=== PATIENT | male | born 1965 | race Caucasian/White ===

== ENCOUNTER 2016-08-04 19:15 | Observation (INO) | payer OTHER ==
[2016-08-04] MEDS ORDERED: Naloxone 0.4 mg/ml Inj (Adult) IVP ONE (20:08)
[2016-08-04] MEDS ORDERED: Naloxone 0.4 mg/ml Inj (Adult) ONE (20:17)
--- NOTE | 2016-08-04 21:43 | C.PDOC ---
History Of Present Illness The patient,a 51 y/o male, presents to the ED for evaluation of intoxication after heroin and alcohol use tonight. Patient denies any pain, recent falls/ injuries, as well as suicidal/homicidal ideation at this time. Chief Complaint (Nursing): Substance Abuse History Per: Patient History/Exam Limitations: intoxication Onset/Duration Of Symptoms: Hrs Current Symptoms Are (Timing): Still Present Modifying Factor(s): Alcohol, Other (+heroin) Associated Symptoms: denies: Suicidal Thoughts, Suicidal Plan Involuntary Hold By: None Recent travel outside of the [place]: No Additional History Per: Patient Past Medical History Reviewed: Historical Data, Nursing Documentation, Vital Signs Vital Signs: Last Vital Signs Temp 98.0 F 08/05/16 04:07 Pulse 94 H 08/05/16 04:07 Resp 16 08/05/16 04:07 BP 143/73 08/05/16 04:07 Pulse Ox 94 L 08/05/16 04:07 - Medical History PMH: Asthma, HTN, Hypercholesterolemia Denies: Chronic Kidney Disease Surgical History: No Surg Hx - [facility] Procedures ALCOHOL DETOXIFICATION (01/03/13) COLONOSCOPY (01/03/13) EXCISION OF DESCENDING COLON, ENDO, DIAGN (02/22/15) EXCISION OF STOMACH, ENDO, DIAGN (07/05/15) OTHER ENDOSCOPY OF SM INTEST (01/03/13) Family History: States: Unknown Family Hx - Social History Hx Tobacco Use: Yes (former smoker) Hx Alcohol Use: Yes Hx Substance Use: Yes - Immunization History Hx Tetanus Toxoid Vaccination: No Hx Influenza Vaccination: No Hx Pneumococcal Vaccination: No Review Of Systems Except As Marked, All Systems Reviewed And Found Negative. Psych: Positive for: Other (alcohol and heroin abuse ). Negative for: Suicidal ideation Physical Exam - Physical Exam Appears: No Acute Distress, Other (visibly intoxicated ) Skin: Normal Color, Warm, Dry Head: Atraumatic, Normacephalic Eye(s): bilateral: Normal Inspection Oral Mucosa: Moist, Other (alcohol on breath ) Chest: Symmetrical, No Deformity, No Tenderness Cardiovascular: Rhythm Regular Respiratory: Normal Breath Sounds Back: Normal Inspection, No Vertebral Tenderness, No Paraspinal Tenderness Extremity: Normal ROM, Capillary Refill (less than 2 seconds) Neurological/Psych: Other (arousable to tactile and verbal stimulation) Gait: Unsteady ED Course And Treatment O2 Sat by Pulse Oximetry: 91 Progress Note: Patient received Narcan IV. ED OBSERVATION Discharge: Yes Date of observation admission: 08/04/16 Time of observation admission: 23:00 - Observation admission statement Patient is being placed in observation because:: Intoxication. - Goals of Observation Goals of observation are:: Sobreity. Disposition - Disposition Disposition: HOME/ ROUTINE Disposition Time: 06:00 Condition: IMPROVED - Clinical Impression Clinical Impression: Drug dependence, Alcohol abuse - Scribe Statement The provider has reviewed the documentation as recorded by the Scribe (Elly Guerra) Provider Attestation: All medical record entries made by the Scribe were at my direction and personally dictated by me. I have reviewed the chart and agree that the record accurately reflects my personal performance of the history, physical exam, medical decision making, and the department course for this patient. I have also personally directed, reviewed, and agree with the discharge instructions and disposition.
[2016-08-04 23:41] VITALS: RESP 16
[2016-08-05 04:08] VITALS: BP 143/73; PULSE 94; TEMP 98
[2016-08-05 05:44] VITALS: O2SAT 91
== END 2016-08-05 05:44 | disposition home or self-care (01) ==
LOC: C.ER 19:15 → C.9OBSV 20:00
PROVIDERS: ADMIT Emergency Medicine; ATTEND Emergency Medicine
DX: F10.229 Alcohol dependence with intoxication, unspecified (principal); F11.20 Opioid dependence, uncomplicated; J45.909 Unspecified asthma, uncomplicated; E78.00 Pure hypercholesterolemia, unspecified; I10 Essential (primary) hypertension
CPT/HCPCS: 82948; 96374; 99285; G0378; J2310

== ENCOUNTER 2016-12-22 17:52 | Observation (INO) | payer OTHER ==
[2016-12-22 18:02] VITALS: RESP 16; TEMP 97.9
[2016-12-22 18:05] VITALS: BMI 33.4
--- NOTE | 2016-12-22 18:14 | C.PDOC ---
History Of Present Illness 51 y/o M who presents to the ED for alcohol intoxication. Patient states he drank "a lot" today and needs a place to rest. Denies injury or pain. Denies head strike. Time Seen by Provider: 12/22/16 18:09 Chief Complaint (Nursing): Substance Abuse History Per: Patient History/Exam Limitations: no limitations Onset/Duration Of Symptoms: Days (x1) Current Symptoms Are (Timing): Still Present Modifying Factor(s): Alcohol Past Medical History Reviewed: Historical Data, Nursing Documentation, Vital Signs Vital Signs: Last Vital Signs Temp 97.9 F 12/22/16 18:02 Pulse 102 H 12/22/16 21:40 Resp 16 12/22/16 21:40 BP 118/66 12/22/16 21:40 Pulse Ox 96 12/22/16 21:40 - Medical History PMH: Asthma, HTN, Hypercholesterolemia Denies: Chronic Kidney Disease - [facility] Procedures ALCOHOL DETOXIFICATION (01/03/13) COLONOSCOPY (01/03/13) EXCISION OF DESCENDING COLON, ENDO, DIAGN (02/22/15) EXCISION OF STOMACH, ENDO, DIAGN (07/05/15) OTHER ENDOSCOPY OF SM INTEST (01/03/13) Family History: States: Unknown Family Hx - Social History Hx Tobacco Use: Yes (former smoker) Hx Alcohol Use: Yes (beer) Hx Substance Use: No - Immunization History Hx Tetanus Toxoid Vaccination: No Hx Influenza Vaccination: No Hx Pneumococcal Vaccination: No Review Of Systems Except As Marked, All Systems Reviewed And Found Negative. Constitutional: Negative for: Other (Injury, head trauma, pain) Psych: Positive for: Other (Alcohol intoxication) Physical Exam - Physical Exam Additional Physical Exam Comments: Constitutional: No acute distress. Alcohol on breath. Head: Normocephalic. Atraumatic. Eyes: PERRL. ENT: Moist mucous membranes. Neck: Supple. No midline tenderness. Cardiovascular: Regular rate. Radial pulse 2+ bilaterally. Chest: No tenderness. Respiratory: Clear to auscultation bilaterally. GI: Soft. Nontender. Nondistended. Back: No midline tenderness. Musculoskeletal: Full ROM x4. Superficial scratch on left lower leg, no tenderness. Minimal bleeding. Skin: No rash. Neurologic: Alert, no focal deficit. ED Course And Treatment O2 Sat by Pulse Oximetry: 95 Progress Note: Patient will be placed on ED-OBS for alcohol intoxication, pending sobriety. ED OBSERVATION Date of observation admission: 12/22/16 Time of observation admission: 18:11 - Observation admission statement Patient is being placed in observation because:: Alcohol intoxication - Goals of Observation Goals of observation are:: Clinical sobriety - Progress Note Progress Note: 12/22/16 Time: 18:11 --Patient is resting comfortably. Vital signs stable. 1900 Resting. Sign out to ED night team. Disposition - Disposition Disposition: HOME/ ROUTINE Disposition Time: 18:11 Condition: STABLE - Clinical Impression Clinical Impression: Alcohol withdrawal - Scribe Statement The provider has reviewed the documentation as recorded by the Jaspreet Mosher All medical record entries made by the Jaspreet were at my direction and personally dictated by me. I have reviewed the chart and agree that the record accurately reflects my personal performance of the history, physical exam, medical decision making, and the department course for this patient. I have also personally directed, reviewed, and agree with the discharge instructions and disposition.
[2016-12-22 21:42] VITALS: BP 118/66; PULSE 102
[2016-12-23 08:23] VITALS: O2SAT 95
== END 2016-12-23 03:06 | disposition home or self-care (01) ==
LOC: C.ER 17:52 → C.9OBSV 18:11
PROVIDERS: ADMIT Student in an Organized Health Care Education/Training Program; ATTEND Student in an Organized Health Care Education/Training Program
DX: F10.239 Alcohol dependence with withdrawal, unspecified (principal); F10.220 Alcohol dependence with intoxication, uncomplicated; I10 Essential (primary) hypertension; E78.00 Pure hypercholesterolemia, unspecified; J45.909 Unspecified asthma, uncomplicated; Z87.891 Personal history of nicotine dependence
CPT/HCPCS: 82948; 90471; 90715; G0378

== ENCOUNTER 2017-01-26 14:59 | Observation (INO) | payer OTHER ==
--- NOTE | 2017-01-26 15:09 | C.PDOC ---
History Of Present Illness Thomas Correa is a 51 year old male who was brought to the emergency department by EMS for alcohol intoxication. He admits to drinking alcohol prior to arrival. EMS report patient was found with an unsteady gait and alcohol breath. Patient denies any injury or head trauma. PMD: None provided. Time Seen by Provider: 01/26/17 15:01 History Per: Patient History/Exam Limitations: intoxication Onset/Duration Of Symptoms: Hrs (prior to arrival) Current Symptoms Are (Timing): Still Present Additional History Per: EMS Past Medical History Reviewed: Historical Data, Nursing Documentation, Vital Signs Vital Signs: Last Vital Signs Temp 98.1 F 01/26/17 19:04 Pulse 88 01/26/17 19:04 Resp 20 01/26/17 19:04 BP 148/68 01/26/17 19:04 Pulse Ox 98 01/26/17 19:04 - Medical History PMH: Asthma, HTN, Hypercholesterolemia Denies: Chronic Kidney Disease - [facility] Procedures ALCOHOL DETOXIFICATION (01/03/13) COLONOSCOPY (01/03/13) EXCISION OF DESCENDING COLON, ENDO, DIAGN (02/22/15) EXCISION OF STOMACH, ENDO, DIAGN (07/05/15) OTHER ENDOSCOPY OF SM INTEST (01/03/13) Family History: States: Unknown Family Hx - Social History Hx Tobacco Use: Yes (former smoker) Hx Alcohol Use: Yes (beer) Hx Substance Use: No - Immunization History Hx Tetanus Toxoid Vaccination: No Hx Influenza Vaccination: No Hx Pneumococcal Vaccination: No Review Of Systems Constitutional: Positive for: Other (Alcohol intoxication). Negative for: Fever , Chills Cardiovascular: Negative for: Chest Pain Respiratory: Negative for: Shortness of Breath Gastrointestinal: Negative for: Nausea, Vomiting, Abdominal Pain, Diarrhea Neurological: Negative for: Weakness, Numbness Physical Exam - Physical Exam Appears: No Acute Distress Skin: Warm, Dry Head: Atraumatic Eye(s): bilateral: PERRL Oral Mucosa: Moist Tongue: No Swelling Lips: No Swelling Neck: Supple Chest: No Tenderness Cardiovascular: Rhythm Regular Respiratory: No Decreased Breath Sounds, No Accessory Muscle Use Gastrointestinal/Abdominal: No Tenderness, No Distention Extremity: No Deformity Neurological/Psych: Oriented x3, Other (intoxicated, moves all extremities, no focal deficits) ED OBSERVATION Date of observation admission: 01/26/17 Time of observation admission: 15:24 - Observation admission statement Patient is being placed in observation because:: Need for resolution of acute symptoms - Goals of Observation Goals of observation are:: Clinical sobriety - Progress Note Progress Note: 01/26/17 15:25 Patient is resting comfortably, no acute changes. Vitals are stable 01/26/17 17:03 Patient is resting comfortably, no acute changes. Vitals are stable 01/26/17 18:35 Patient is resting comfortably, no acute changes. Vitals are stable Disposition - Disposition Disposition: HOME/ ROUTINE Disposition Time: 19:00 Condition: STABLE - Clinical Impression Clinical Impression: Alcohol intoxication - Scribe Statement The provider has reviewed the documentation as recorded by the Jaspreet rCowder Provider Attestation: All medical record entries made by the Jaspreet were at my direction and personally dictated by me. I have reviewed the chart and agree that the record accurately reflects my personal performance of the history, physical exam, medical decision making, and the department course for this patient. I have also personally directed, reviewed, and agree with the discharge instructions and disposition. Physician Patient Turnover Patient Signed Over To: Geronimo Medina Handoff Comments: pending sobriety
[2017-01-26 15:15] VITALS: RESP 20
[2017-01-26 19:04] VITALS: BP 148/68; PULSE 88; TEMP 98.1; O2SAT 98
== END 2017-01-26 19:03 | disposition home or self-care (01) ==
LOC: C.ER 14:59 → C.9OBSV 15:30
PROVIDERS: ADMIT Emergency Medicine; ATTEND Emergency Medicine
DX: F10.129 Alcohol abuse with intoxication, unspecified (principal); Y90.9 Presence of alcohol in blood, level not specified; I10 Essential (primary) hypertension; J45.909 Unspecified asthma, uncomplicated; Z87.891 Personal history of nicotine dependence
CPT/HCPCS: 82948; 99283; G0378

== ENCOUNTER 2017-02-04 12:56 | Emergency (ER) | payer OTHER ==
[2017-02-04 13:46] VITALS: RESP 20
[2017-02-04 15:49] VITALS: BP 128/73; PULSE 86; TEMP 98.3; O2SAT 95
--- NOTE | 2017-02-04 19:15 | C.PDOC ---
History Of Present Illness Pt was BIBEMS due to public alcohol intoxication. Pt admits to drinking "a lot of beer" today. Time Seen by Provider: 02/04/17 13:53 Chief Complaint (Nursing): Substance Abuse History Per: Patient, EMS History/Exam Limitations: intoxication Current Symptoms Are (Timing): Still Present Suicide/Self Injury Attempted (Context): None Modifying Factor(s): Alcohol Severity: Severe Associated Symptoms: denies: Suicidal Thoughts, Suicidal Plan Additional History Per: Prior Records Past Medical History Reviewed: Historical Data, Nursing Documentation, Vital Signs Vital Signs: Last Vital Signs Temp 98.3 F 02/04/17 15:48 Pulse 86 02/04/17 15:48 Resp 20 02/04/17 15:48 BP 128/73 02/04/17 15:48 Pulse Ox 95 02/04/17 15:48 - Medical History PMH: Asthma, HTN, Hypercholesterolemia Other PMH: Alcohol abuse - [facility] Procedures ALCOHOL DETOXIFICATION (01/03/13) COLONOSCOPY (01/03/13) EXCISION OF DESCENDING COLON, ENDO, DIAGN (02/22/15) EXCISION OF STOMACH, ENDO, DIAGN (07/05/15) OTHER ENDOSCOPY OF SM INTEST (01/03/13) Family History: States: Unknown Family Hx - Social History Hx Tobacco Use: Yes (former smoker) Hx Alcohol Use: Yes (beer) Hx Substance Use: No - Immunization History Hx Tetanus Toxoid Vaccination: No Hx Influenza Vaccination: No Hx Pneumococcal Vaccination: No Review Of Systems Review Of Systems: ROS cannot be obtained secondary to pt's inabilty to answer questions. Physical Exam - Physical Exam Appears: Other (AOB, intoxicated) Skin: Normal Color, Warm, Dry, No Rash Head: Atraumatic, Normacephalic Eye(s): bilateral: PERRL, EOMI Neck: Normal ROM, No Midline Cervical Tenderness, No Step Off Deformity, Supple Cardiovascular: Rhythm Regular Respiratory: Normal Breath Sounds, No Accessory Muscle Use Gastrointestinal/Abdominal: Soft, No Tenderness Extremity: Normal ROM, No Deformity Neurological/Psych: Eyes Open With Command, Slow To Respond With Command Gait: Unable To Assess ED Course And Treatment O2 Sat by Pulse Oximetry: 95 Pulse Ox Interpretation: Normal Progress Note: I was informed by the staff that the patient had walked out during observation. Reevaluation Time: 19:17 Reassessment Condition: Improved Disposition - Disposition Disposition: ELOPEMENT - ER ONLY Disposition Time: 19:19 Condition: UNKNOWN - Clinical Impression Clinical Impression: Alcohol abuse, Patient left before treatment completed
== END 2017-02-04 15:48 | disposition left against medical advice (07) ==
LOC: C.ER 12:56
DX: F10.10 Alcohol abuse, uncomplicated (principal); Y90.9 Presence of alcohol in blood, level not specified

== ENCOUNTER → 2017-03-23 | Emergency (ER) | payer OTHER ==
[~2017-03-23] MED LIST: DiphenhydrAMINE 50 mg/ml Inj ONE; Multivitamin (MVI) 10 ML, Thiamine 100 MG, Folic Acid 1 MG in Sodium Chloride 0.9% 1,00... IV STA; Sodium Chloride 0.9% 1,000 ML ONE
[2017-03-23 14:32] VITALS: BP 147/58; PULSE 113; RESP 20; TEMP 98.7; O2SAT 95
[2017-03-23 14:43] VITALS: BMI 35.5
[2017-03-23 15:10] LABS: BASO # 0.1 K/uL (0.0-0.2); EOS # 0.3 K/uL (0.0-0.7); EOS % 4.6 % (0.0-4.0); HEMATOCRIT 30.1 % (35.0-51.0); LYMPH # 2.2 K/uL (1.0-4.3); LYMPH % 33.3 % (20.0-40.0); MEAN CELL VOLUME 91.7 fL (80.0-94.0); MEAN CORPUSCULAR HEMOGLOBIN 29.3 pg (27.0-31.0); MEAN PLATELET VOLUME 6.8 fL (7.2-11.7); MONO # 0.7 K/uL (0.0-0.8); MONO % 10.2 % (0.0-10.0); RED CELL DISTRIBUTION WIDTH 21.6 % (11.5-14.5); WHITE BLOOD COUNT 6.5 K/uL (4.8-10.8)
[2017-03-23 15:25] LABS: BILIRUBIN,TOTAL 2.3 mg/dL (0.2-1.3); CALCIUM 7.3 mg/dl (8.6-10.4); GFR AFRICAN-AMERICAN > 60; GLUCOSE,RANDOM 115 mg/dL (75-110)
[2017-03-23 15:26] LABS: ALB/GLOB RATIO 0.8 (1.0-2.1); ALKALINE PHOSPHATASE 168 U/L (38-126); ALT/SGPT 36 U/L (21-72); AST/SGOT 86 U/L (17-59); BLOOD UREA NITROGEN 12 mg/dL (9-20); CARBON DIOXIDE 27 mmol/L (22-30); CHLORIDE 104 mmol/L (98-107); MAGNESIUM 1.5 mg/dL (1.6-2.3); POTASSIUM 3.9 mmol/L (3.6-5.2); SODIUM 139 mmol/L (132-148)
[2017-03-23 16:27] LABS: ALCOHOL SERUM 398 mg/dl (0-10)
--- NOTE | 2017-03-23 16:33 | C.PDOC ---
History Of Present Illness Pt was BIBEMS due to public alcohol intoxication. Time Seen by Provider: 03/23/17 14:32 Chief Complaint (Nursing): Substance Abuse History Per: Patient, EMS History/Exam Limitations: intoxication Onset/Duration Of Symptoms: Unknown Current Symptoms Are (Timing): Still Present Suicide/Self Injury Attempted (Context): None Modifying Factor(s): Alcohol Severity: Moderate Associated Symptoms: denies: Suicidal Thoughts, Suicidal Plan Additional History Per: Prior Records Past Medical History Reviewed: Historical Data, Nursing Documentation, Vital Signs Vital Signs: Last Vital Signs Temp 98.7 F 03/23/17 14:31 Pulse 113 H 03/23/17 14:31 Resp 20 03/23/17 14:31 BP 147/58 L 03/23/17 14:31 Pulse Ox 95 03/23/17 14:31 - Medical History PMH: Asthma, HTN, Hypercholesterolemia Other PMH: Alcohol abuse - [facility] Procedures ALCOHOL DETOXIFICATION (01/03/13) COLONOSCOPY (01/03/13) EXCISION OF DESCENDING COLON, ENDO, DIAGN (02/22/15) EXCISION OF STOMACH, ENDO, DIAGN (07/05/15) OTHER ENDOSCOPY OF SM INTEST (01/03/13) Family History: States: Unknown Family Hx - Social History Hx Tobacco Use: Yes (former smoker) Hx Alcohol Use: Yes (beer) Hx Substance Use: No - Immunization History Hx Tetanus Toxoid Vaccination: No Hx Influenza Vaccination: No Hx Pneumococcal Vaccination: No Review Of Systems Review Of Systems: ROS cannot be obtained secondary to pt's inabilty to answer questions. Physical Exam - Physical Exam Appears: Other (AOB, intoxicated) Skin: Normal Color, Warm, Dry Head: Abrasion (on nose) Eye(s): bilateral: PERRL Neck: Normal ROM, No Midline Cervical Tenderness, No Step Off Deformity, Supple Chest: Symmetrical, No Deformity Cardiovascular: Rhythm Regular Respiratory: Normal Breath Sounds, No Accessory Muscle Use Gastrointestinal/Abdominal: Soft, No Tenderness Extremity: Normal ROM, No Deformity Neurological/Psych: Slow To Respond With Command, Other (Moving all extremities) Gait: Unable To Assess ED Course And Treatment - Laboratory Results Result Diagrams: 03/23/17 15:05 03/23/17 15:05 O2 Sat by Pulse Oximetry: 95 Pulse Ox Interpretation: Normal Progress Note: I was informed by the staff that the pt had walked out during evaluation. Reevaluation Time: 16:30 Disposition - Disposition Disposition: ELOPEMENT - ER ONLY Disposition Time: 16:40 Condition: UNKNOWN - Clinical Impression Clinical Impression: Alcohol intoxication, Left before treatment completed
== END | disposition left against medical advice (07) ==
LOC: C.ER 14:23
DX: F10.129 Alcohol abuse with intoxication, unspecified (principal); Y90.8 Blood alcohol level of 240 mg/100 ml or more

== ENCOUNTER 2017-05-25 18:41 | Emergency (ER) | payer OTHER ==
[2017-05-25 18:42] VITALS: BMI 35.5
[2017-05-25 18:49] VITALS: O2SAT 98
--- NOTE | 2017-05-25 19:22 | C.PDOC ---
History Of Present Illness 51 year old male presents to the ER via EMS for public intoxication. Patient has had many prior evaluation with the same presentation. Currently ambulating freely in the ER. Denies complaints at this time. Time Seen by Provider: 05/25/17 19:08 Chief Complaint (Nursing): Substance Abuse History Per: Patient History/Exam Limitations: no limitations Onset/Duration Of Symptoms: Hrs Current Symptoms Are (Timing): Still Present Suicide/Self Injury Attempted (Context): None Modifying Factor(s): Alcohol Associated Symptoms: denies: Depression, Suicidal Thoughts, Suicidal Plan Involuntary Hold By: None Recent travel outside of the [place]: No Past Medical History Reviewed: Historical Data, Nursing Documentation, Vital Signs Vital Signs: Last Vital Signs Temp 97.2 F L 05/25/17 19:27 Pulse 84 05/25/17 19:27 Resp 14 05/25/17 19:27 BP 150/80 05/25/17 19:27 Pulse Ox 98 05/25/17 19:27 - Medical History PMH: Asthma, HTN, Hypercholesterolemia - [facility] Procedures ALCOHOL DETOXIFICATION (01/03/13) COLONOSCOPY (01/03/13) EXCISION OF DESCENDING COLON, ENDO, DIAGN (02/22/15) EXCISION OF STOMACH, ENDO, DIAGN (07/05/15) OTHER ENDOSCOPY OF SM INTEST (01/03/13) Family History: States: Unknown Family Hx - Social History Hx Tobacco Use: Yes (former smoker) Hx Alcohol Use: Yes (beer) Hx Substance Use: No - Immunization History Hx Tetanus Toxoid Vaccination: No Hx Influenza Vaccination: No Hx Pneumococcal Vaccination: No Review Of Systems Constitutional: Negative for: Fever, Chills Gastrointestinal: Negative for: Nausea, Vomiting, Abdominal Pain, Diarrhea Physical Exam - Physical Exam Appears: Non-toxic, No Acute Distress, Other (ETOH on breath, no sign of injury) Skin: Normal Color, Warm, Dry Head: Atraumatic, Normacephalic Eye(s): bilateral: Normal Inspection Oral Mucosa: Moist Neck: Normal, Supple Chest: Symmetrical, No Tenderness Cardiovascular: Rhythm Regular Respiratory: Normal Breath Sounds, No Rales, No Rhonchi, No Wheezing Gastrointestinal/Abdominal: Soft, No Tenderness Neurological/Psych: Oriented x3, Normal Speech, Other (No focal deficits) Gait: Steady (Ambulating freely in the ER) ED Course And Treatment O2 Sat by Pulse Oximetry: 98 (Room air) Pulse Ox Interpretation: Normal Medical Decision Making Medical Decision Making: typical alcohol intox no injuries baseline per prior evals stable gait in ED will go to [place] [facility]. Disposition Doctor Will See Patient In The: Office Counseled Patient/Family Regarding: Studies Performed, Diagnosis - Disposition Referrals: Alcoholics Anonymous [Outside] [facility] [Outside] [facility] [Outside] [facility] [Outside] Disposition: HOME/ ROUTINE Disposition Time: 19:22 Condition: GOOD Instructions: Abuse of Alcohol (ED) Forms: [employer] (Tajik) Print Language: WELSH - Clinical Impression Clinical Impression: Alcohol abuse - Scribe Statement The provider has reviewed the documentation as recorded by the Scribjessica Naqvi All medical record entries made by the Scribe were at my direction and personally dictated by me. I have reviewed the chart and agree that the record accurately reflects my personal performance of the history, physical exam, medical decision making, and the department course for this patient. I have also personally directed, reviewed, and agree with the discharge instructions and disposition.
[2017-05-25 19:29] VITALS: BP 150/80; PULSE 84; RESP 14; TEMP 97.2
== END 2017-05-25 19:45 | disposition home or self-care (01) ==
LOC: C.ER 18:41
DX: F10.10 Alcohol abuse, uncomplicated (principal); E78.00 Pure hypercholesterolemia, unspecified; I10 Essential (primary) hypertension; Z87.891 Personal history of nicotine dependence

== ENCOUNTER 2017-06-14 22:10 | Emergency (ER) | payer OTHER ==
[2017-06-14 22:13] VITALS: BMI 35.5
--- NOTE | 2017-06-15 00:32 | C.PDOC ---
History Of Present Illness 51 year old male is brought into the ED for alcohol intoxication after he was found wandering in [facility] [address] [facility]. Patient admits to drinking alcohol today. Patient denies any SI/HI, hallucinations, physical complaints. Chief Complaint (Nursing): Substance Abuse History Per: Patient, EMS History/Exam Limitations: intoxication Onset/Duration Of Symptoms: Hrs Current Symptoms Are (Timing): Still Present Suicide/Self Injury Attempted (Context): None Modifying Factor(s): Alcohol Associated Symptoms: denies: Depression, Suicidal Thoughts, Suicidal Plan Recent travel outside of the [place]: No Additional History Per: Patient Past Medical History Reviewed: Historical Data, Nursing Documentation, Vital Signs Vital Signs: Last Vital Signs Temp 97 F L 06/15/17 04:00 Pulse 70 06/15/17 04:00 Resp 14 06/15/17 04:00 BP 118/70 06/15/17 04:00 Pulse Ox 95 06/15/17 05:28 - Medical History PMH: Asthma, HTN, Hypercholesterolemia Denies: Chronic Kidney Disease Surgical History: No Surg Hx - [facility] Procedures ALCOHOL DETOXIFICATION (01/03/13) COLONOSCOPY (01/03/13) EXCISION OF DESCENDING COLON, ENDO, DIAGN (02/22/15) EXCISION OF STOMACH, ENDO, DIAGN (07/05/15) OTHER ENDOSCOPY OF SM INTEST (01/03/13) Family History: States: Unknown Family Hx - Social History Hx Tobacco Use: Yes (former smoker) Hx Alcohol Use: Yes (beer) Hx Substance Use: No - Immunization History Hx Tetanus Toxoid Vaccination: No Hx Influenza Vaccination: No Hx Pneumococcal Vaccination: No Review Of Systems Constitutional: Negative for: Fever, Chills Cardiovascular: Negative for: Chest Pain, Palpitations Respiratory: Negative for: Cough, Shortness of Breath Gastrointestinal: Negative for: Nausea, Vomiting, Abdominal Pain Skin: Negative for: Rash Neurological: Negative for: Weakness, Numbness Psych: Negative for: Depression, Suicidal ideation Physical Exam - Physical Exam Appears: Non-toxic, Unkempt Skin: Normal Color, Warm, Dry Head: Atraumatic, Normacephalic Eye(s): bilateral: Normal Inspection Nose: No Discharge, No Deformity Oral Mucosa: Moist Neck: Normal ROM, Supple Chest: Symmetrical Cardiovascular: Rhythm Regular, No Murmur Respiratory: Normal Breath Sounds, No Rales, No Rhonchi, No Wheezing Gastrointestinal/Abdominal: Soft, No Tenderness, No Guarding, No Rebound Extremity: Normal ROM, No Tenderness, No Deformity, No Swelling Neurological/Psych: Oriented x3, Other (Slurred speech, somnolent) ED Course And Treatment O2 Sat by Pulse Oximetry: 95 (On RA) Pulse Ox Interpretation: Normal Medical Decision Making Medical Decision Making: Impression: AOB Plan: * Period neurological checks * Check when medically sober Disposition - Disposition Referrals: Alcoholics Anonymous [Outside] Disposition: HOME/ ROUTINE Disposition Time: 05:27 Condition: FAIR Instructions: Alcohol Use - When Is Drinking a Problem?, Alcohol Poisoning Forms: [email or web address] (Urdu) Print Language: HEBREW - Clinical Impression Clinical Impression: Alcohol intoxication - Scribe Statement The provider has reviewed the documentation as recorded by the Scribe Tono Avila All medical record entries made by the Scribe were at my direction and personally dictated by me. I have reviewed the chart and agree that the record accurately reflects my personal performance of the history, physical exam, medical decision making, and the department course for this patient. I have also personally directed, reviewed, and agree with the discharge instructions and disposition.
[2017-06-15 05:29] VITALS: O2SAT 95
[2017-06-15 05:37] VITALS: BP 118/70; PULSE 70; RESP 14; TEMP 97
== END 2017-06-15 05:37 | disposition home or self-care (01) ==
LOC: C.ER 22:10
DX: F10.129 Alcohol abuse with intoxication, unspecified (principal); Y90.9 Presence of alcohol in blood, level not specified

== ENCOUNTER 2017-07-06 14:51 | Emergency (ER) | payer OTHER ==
[2017-07-06 14:52] VITALS: BMI 35.5
[2017-07-06 15:04] VITALS: TEMP 97.6
--- NOTE | 2017-07-06 15:17 | C.PDOC ---
History Of Present Illness Patient is a 51 y/o male who presents to the ED by BLS for public intoxication. Patient has extensive history for similar presentations. Denies any SI, HI, fever, or chills. No other physical complaints at this time. Time Seen by Provider: 07/06/17 15:05 Chief Complaint (Nursing): Substance Abuse History Per: Patient History/Exam Limitations: no limitations Onset/Duration Of Symptoms: Hrs Current Symptoms Are (Timing): Still Present Suicide/Self Injury Attempted (Context): None Modifying Factor(s): Alcohol Associated Symptoms: denies: Suicidal Thoughts, Suicidal Plan Recent travel outside of the [place]: No Past Medical History Reviewed: Historical Data, Nursing Documentation, Vital Signs Vital Signs: Last Vital Signs Temp 97.6 F 07/06/17 14:59 Pulse 88 07/06/17 17:37 Resp 20 07/06/17 17:37 BP 144/77 07/06/17 17:37 Pulse Ox 98 07/06/17 19:11 - Medical History PMH: Asthma, HTN, Hypercholesterolemia Denies: Chronic Kidney Disease Surgical History: Endoscopy Other Surgeries: colonoscopy - [facility] Procedures ALCOHOL DETOXIFICATION (01/03/13) COLONOSCOPY (01/03/13) EXCISION OF DESCENDING COLON, ENDO, DIAGN (02/22/15) EXCISION OF STOMACH, ENDO, DIAGN (07/05/15) OTHER ENDOSCOPY OF SM INTEST (01/03/13) Family History: States: No Known Family Hx - Social History Hx Tobacco Use: Yes (former smoker) Hx Alcohol Use: Yes (beer) Hx Substance Use: No - Immunization History Hx Tetanus Toxoid Vaccination: No Hx Influenza Vaccination: No Hx Pneumococcal Vaccination: No Review Of Systems Except As Marked, All Systems Reviewed And Found Negative. Neurological: Positive for: Other (actue EtOH intoxication) Physical Exam - Physical Exam Appears: Well, Non-toxic, No Acute Distress Skin: Normal Color, Warm, Dry Head: Atraumatic, Normacephalic Oral Mucosa: Moist Chest: Symmetrical Cardiovascular: Rhythm Regular, No Murmur Respiratory: Normal Breath Sounds, No Rales, No Rhonchi, No Wheezing Gastrointestinal/Abdominal: Soft, No Tenderness Neurological/Psych: Oriented x3, Normal Speech Gait: Unsteady ED Course And Treatment O2 Sat by Pulse Oximetry: 98 Medical Decision Making Medical Decision Making: Blood sugar ordered. pendign clinical sobriety 430 : pt sleeping in nad. Pt is no longer seen in ER, elopement. Disposition - Disposition Disposition: ELOPEMENT - ER ONLY Disposition Time: 07:15 Condition: UNKNOWN Forms: [facility] ([place] Citizen) - Clinical Impression Clinical Impression: Alcohol abuse - Scribe Statement The provider has reviewed the documentation as recorded by the Scribe Selina Aldana All medical record entries made by the Scribe were at my direction and personally dictated by me. I have reviewed the chart and agree that the record accurately reflects my personal performance of the history, physical exam, medical decision making, and the department course for this patient. I have also personally directed, reviewed, and agree with the discharge instructions and disposition.
[2017-07-06 17:37] VITALS: BP 144/77; PULSE 88; RESP 20
[2017-07-06 19:11] VITALS: O2SAT 98
== END 2017-07-06 19:12 | disposition left against medical advice (07) ==
LOC: C.ER 14:51
DX: F10.10 Alcohol abuse, uncomplicated (principal); E78.00 Pure hypercholesterolemia, unspecified; I10 Essential (primary) hypertension; Z87.891 Personal history of nicotine dependence

== ENCOUNTER 2017-07-12 22:56 | Emergency (ER) | payer OTHER ==
[2017-07-12 22:56] VITALS: BMI 35.5
--- NOTE | 2017-07-13 01:34 | C.PDOC ---
History Of Present Illness 52 year old male presents to the ER via EMS for public intoxication. Patient is seen regularly in the ER for ETOH intoxication, last visit was on 07/06/17. Denies physical complaints at this time. Time Seen by Provider: 07/12/17 23:17 Chief Complaint (Nursing): Substance Abuse History Per: Patient History/Exam Limitations: no limitations Onset/Duration Of Symptoms: Hrs Current Symptoms Are (Timing): Still Present Suicide/Self Injury Attempted (Context): None Modifying Factor(s): Alcohol Associated Symptoms: denies: Depression, Suicidal Thoughts Involuntary Hold By: None Recent travel outside of the [place]: No Past Medical History Reviewed: Historical Data, Nursing Documentation, Vital Signs Vital Signs: Last Vital Signs Temp 98.2 F 07/13/17 05:19 Pulse 95 H 07/13/17 05:19 Resp 22 07/13/17 05:19 BP 110/63 07/13/17 05:19 Pulse Ox 98 07/13/17 05:19 - Medical History PMH: Asthma, HTN, Hypercholesterolemia Surgical History: Endoscopy - [facility] Procedures ALCOHOL DETOXIFICATION (01/03/13) COLONOSCOPY (01/03/13) EXCISION OF DESCENDING COLON, ENDO, DIAGN (02/22/15) EXCISION OF STOMACH, ENDO, DIAGN (07/05/15) OTHER ENDOSCOPY OF SM INTEST (01/03/13) Family History: States: Unknown Family Hx - Social History Hx Tobacco Use: Yes (former smoker) Hx Alcohol Use: Yes (beer) Hx Substance Use: No - Immunization History Hx Tetanus Toxoid Vaccination: No Hx Influenza Vaccination: No Hx Pneumococcal Vaccination: No Review Of Systems Constitutional: Negative for: Fever, Chills Cardiovascular: Negative for: Chest Pain, Palpitations Respiratory: Negative for: Shortness of Breath Gastrointestinal: Negative for: Nausea, Vomiting Psych: Negative for: Depression, Suicidal ideation Physical Exam - Physical Exam Appears: Non-toxic, No Acute Distress, Other (ETOH on breath) Skin: Normal Color, Warm, Dry Head: Atraumatic, Normacephalic Eye(s): bilateral: Normal Inspection Oral Mucosa: Moist Chest: Symmetrical, No Tenderness Cardiovascular: Rhythm Regular Respiratory: Normal Breath Sounds, No Rales, No Rhonchi, No Wheezing Gastrointestinal/Abdominal: Soft, No Tenderness Neurological/Psych: Oriented x3, Normal Speech ED Course And Treatment O2 Sat by Pulse Oximetry: 96 Reevaluation Time: 05:50 Reassessment Condition: Improved Disposition Doctor Will See Patient In The: Office Counseled Patient/Family Regarding: Studies Performed, Diagnosis - Disposition Disposition: HOME/ ROUTINE Disposition Time: 05:50 Condition: GOOD Forms: [facility] (Albanian) - Clinical Impression Clinical Impression: Alcoholic, Alcohol abuse - Scribe Statement The provider has reviewed the documentation as recorded by the Scribjessica Naqvi All medical record entries made by the Jeremyibjessica were at my direction and personally dictated by me. I have reviewed the chart and agree that the record accurately reflects my personal performance of the history, physical exam, medical decision making, and the department course for this patient. I have also personally directed, reviewed, and agree with the discharge instructions and disposition.
[2017-07-13 06:28] VITALS: BP 123/77; PULSE 89; RESP 20; TEMP 98; O2SAT 97
== END 2017-07-13 06:28 | disposition home or self-care (01) ==
LOC: C.ER 22:56
DX: F10.20 Alcohol dependence, uncomplicated (principal); Y90.9 Presence of alcohol in blood, level not specified

== ENCOUNTER 2017-07-20 00:22 | Emergency (ER) | payer OTHER ==
[2017-07-20 00:22] VITALS: BMI 35.5
[2017-07-20 00:38] VITALS: RESP 18
--- NOTE | 2017-07-20 00:46 | C.PDOC ---
History Of Present Illness 52 y/o male well known to ER presents intoxicated. Denies acute complaints. No further Hx available due to heavy intoxication. Time Seen by Provider: 07/20/17 00:44 Chief Complaint (Nursing): Substance Abuse History Per: Patient History/Exam Limitations: intoxication Onset/Duration Of Symptoms: Hrs Current Symptoms Are (Timing): Still Present Suicide/Self Injury Attempted (Context): None Modifying Factor(s): Alcohol Associated Symptoms: denies: Suicidal Thoughts, Suicidal Plan Involuntary Hold By: None Recent travel outside of the [place]: No Past Medical History Reviewed: Historical Data, Nursing Documentation, Vital Signs Vital Signs: Last Vital Signs Temp 97.6 F 07/20/17 04:55 Pulse 99 H 07/20/17 04:55 Resp 18 07/20/17 04:55 BP 118/63 07/20/17 04:55 Pulse Ox 97 07/20/17 04:55 - Medical History PMH: Asthma, HTN, Hypercholesterolemia Surgical History: Endoscopy - [facility] Procedures ALCOHOL DETOXIFICATION (01/03/13) COLONOSCOPY (01/03/13) EXCISION OF DESCENDING COLON, ENDO, DIAGN (02/22/15) EXCISION OF STOMACH, ENDO, DIAGN (07/05/15) OTHER ENDOSCOPY OF SM INTEST (01/03/13) Family History: States: Unknown Family Hx - Social History Hx Tobacco Use: Yes (former smoker) Hx Alcohol Use: Yes (beer) Hx Substance Use: No - Immunization History Hx Tetanus Toxoid Vaccination: No Hx Influenza Vaccination: No Hx Pneumococcal Vaccination: No Review Of Systems Review Of Systems: ROS cannot be obtained secondary to pt's inabilty to answer questions. (Unable to obtiain due to Intoxication) Physical Exam - Physical Exam Appears: Non-toxic, No Acute Distress, Other (Somnulent but arousable to verbal stimuli ) Skin: Normal Color, Warm, Dry Head: Atraumatic, Normacephalic Eye(s): bilateral: Normal Inspection Ear(s): Bilateral: Normal Nose: Normal, No Discharge, No Deformity Oral Mucosa: Moist Neck: Supple Chest: Symmetrical, No Tenderness Cardiovascular: Rhythm Regular Respiratory: Normal Breath Sounds, No Decreased Breath Sounds, No Rales, No Rhonchi, No Wheezing Gastrointestinal/Abdominal: Soft, No Tenderness, No Distention, No Guarding, No Rebound Extremity: Normal ROM, No Pedal Edema, No Deformity Extremity: Bilateral: Normal Color And Temperature, Normal ROM Pulses: Left Dorsalis Pedis: Normal, Right Dorsalis Pedis: Normal Neurological/Psych: Oriented x3, Normal Speech ED Course And Treatment O2 Sat by Pulse Oximetry: 99 (RA) Pulse Ox Interpretation: Normal Medical Decision Making Medical Decision Making: Impression: - Alcohol intoxication Plan: - Frequent neuro checks - Patient will be discharged when completely sober Disposition - Disposition Referrals: Alcoholics Anonymous [Outside] Disposition: HOME/ ROUTINE Disposition Time: 07:10 Condition: FAIR Instructions: Alcohol Use - When Is Drinking a Problem? Forms: [employer] (Citizen Of [place]), [employer] (Bengali) Print Language: AFGHAN - Clinical Impression Clinical Impression: Alcohol intoxication - Scribe Statement The provider has reviewed the documentation as recorded by the Scribjessica Méndez All medical record entries made by the Scribjessica were at my direction and personally dictated by me. I have reviewed the chart and agree that the record accurately reflects my personal performance of the history, physical exam, medical decision making, and the department course for this patient. I have also personally directed, reviewed, and agree with the discharge instructions and disposition.
[2017-07-20 04:56] VITALS: BP 118/63; PULSE 99; TEMP 97.6
[2017-07-20 07:11] VITALS: O2SAT 99
== END 2017-07-20 05:32 | disposition home or self-care (01) ==
LOC: C.ER 00:22
DX: F10.129 Alcohol abuse with intoxication, unspecified (principal); Y90.9 Presence of alcohol in blood, level not specified

== ENCOUNTER 2017-07-20 22:03 | Emergency (ER) | payer OTHER ==
[2017-07-20 22:06] VITALS: BMI 35.5
[2017-07-20 22:28] VITALS: TEMP 97.6
--- NOTE | 2017-07-20 22:39 | C.PDOC ---
History Of Present Illness 52 y/o male brought to the Emergency Department via EMS for alcohol intoxication. Patient admits to drinking alcohol today. States he fell on the street and hit his head. Patient is able to ambulate with unsteady gait. No obvious signs of other injuries. Time Seen by Provider: 07/20/17 22:18 Chief Complaint (Nursing): Substance Abuse History Per: Patient History/Exam Limitations: intoxication Onset/Duration Of Symptoms: Days (x1) Modifying Factor(s): Alcohol Past Medical History Reviewed: Historical Data, Nursing Documentation, Vital Signs Vital Signs: Last Vital Signs Temp 97.6 F 07/20/17 22:21 Pulse 92 H 07/20/17 22:21 Resp 16 07/20/17 22:21 BP 131/78 07/20/17 22:21 Pulse Ox 95 07/20/17 23:33 - Medical History PMH: Asthma, HTN, Hypercholesterolemia Denies: Chronic Kidney Disease Surgical History: Endoscopy - [facility] Procedures ALCOHOL DETOXIFICATION (01/03/13) COLONOSCOPY (01/03/13) EXCISION OF DESCENDING COLON, ENDO, DIAGN (02/22/15) EXCISION OF STOMACH, ENDO, DIAGN (07/05/15) OTHER ENDOSCOPY OF SM INTEST (01/03/13) Family History: States: Unknown Family Hx - Social History Hx Tobacco Use: Yes (former smoker) Hx Alcohol Use: Yes (beer) Hx Substance Use: No - Immunization History Hx Tetanus Toxoid Vaccination: No Hx Influenza Vaccination: No Hx Pneumococcal Vaccination: No Review Of Systems Except As Marked, All Systems Reviewed And Found Negative. Eyes: Negative for: Vision Change Gastrointestinal: Negative for: Vomiting Musculoskeletal: Negative for: Arm Pain, Back Pain, Leg Pain Neurological: Positive for: Headache. Negative for: Weakness, Numbness Psych: Positive for: Other (alcohol intoxication) Physical Exam - Physical Exam Appears: Non-toxic, No Acute Distress Skin: Normal Color, Warm, Dry Head: Normacephalic, No Laceration, Other (boggy area over the right parietal occiput) Eye(s): bilateral: Normal Inspection, PERRL, EOMI Nose: Normal Oral Mucosa: Moist Neck: Normal ROM, No Midline Cervical Tenderness, Supple Chest: Symmetrical Cardiovascular: Rhythm Regular, No Murmur Respiratory: Normal Breath Sounds, No Accessory Muscle Use Gastrointestinal/Abdominal: Soft, No Tenderness, No Distention Extremity: Bilateral: Atraumatic, Normal Color And Temperature Neurological/Psych: Other (Slurred speech, (+) alcohol on breath) Gait: Unsteady ED Course And Treatment O2 Sat by Pulse Oximetry: 95 (RA) Pulse Ox Interpretation: Normal - CT Scan/US CT Head Other Rad Studies (CT/US): Read By Radiologist, Radiology Report Reviewed CT/US Interpretation: FINDINGS: Brain: Mild atrophy. No intracranial hemorrhage. No mass. Dilated perivascular spaces vs chronic. lacunar infarcts about basal ganglia. No edema. Ventricles: No hydrocephalus. Bones/joints: No acute fracture. Soft tissues: Right pinna calcifications. Vasculature: Minimal atherosclerotic disease of intracranial arteries. Sinuses: Scattered minimal to mild mucosal thickening. Mastoid air cells: No mastoid effusion. Orbits: Unremarkable as visualized. IMPRESSION: 1. No intracranial hemorrhage. 2. Incidental/non-acute findings are described above. Thank you for allowing us to participate in the care of your patient. Dictated and Authenticated by: Jonah Garcia MD. 07/20/2017 11:09 PM Eastern Time ([place] & [place]) Reevaluation Time: 00:11 Reassessment Condition: Unchanged (Patient continues to sleep quietly) Medical Decision Making Medical Decision Making: Initial Impression: 52 y/o intoxicated male with head injury Time: 22:34 Initial Plan: * Accucheck * CT Head W/O contrast Finger stick is 128. Disposition - Disposition Disposition Time: 00:13 Condition: STABLE Forms: [facility] (Bengali) - Clinical Impression Clinical Impression: Alcohol intoxication - Scribe Statement The provider has reviewed the documentation as recorded by the Jeremyibjessica Mosher Provider Attestation: All medical record entries made by the Jeremyibe were at my direction and personally dictated by me. I have reviewed the chart and agree that the record accurately reflects my personal performance of the history, physical exam, medical decision making, and the department course for this patient. I have also personally directed, reviewed, and agree with the discharge instructions and disposition. Physician Patient Turnover Patient Signed Over To: Sherrill Neal Handoff Comments: pending sobriety
--- NOTE | 2017-07-20 23:09 | CT ---
EXAM: CT Head Without Intravenous Contrast CLINICAL HISTORY: 52 years old, male; Injury or trauma; Fall; Initial encounter; Concussion / head injury; Additional info: ETOH head injury TECHNIQUE: Axial computed tomography images of the head/brain without intravenous contrast. All CT scans at this facility use one or more dose reduction techniques, viz.: automated exposure control; ma/kV adjustment per patient size (including targeted exams where dose is matched to indication; i.e. head); or iterative reconstruction technique. Coronal and sagittal reformatted images were created and reviewed. COMPARISON: No relevant prior studies available. FINDINGS: Brain: Mild atrophy. No intracranial hemorrhage. No mass. Dilated perivascular spaces vs chronic lacunar infarcts about basal ganglia. No edema. Ventricles: No hydrocephalus. Bones/joints: No acute fracture. Soft tissues: Right pinna calcifications. Vasculature: Minimal atherosclerotic disease of intracranial arteries. Sinuses: Scattered minimal to mild mucosal thickening. Mastoid air cells: No mastoid effusion. Orbits: Unremarkable as visualized. IMPRESSION: 1. No intracranial hemorrhage. 2. Incidental/non-acute findings are described above.
[2017-07-21 01:49] VITALS: RESP 19
[2017-07-21 04:20] VITALS: BP 121/67; PULSE 98; O2SAT 96
== END 2017-07-21 05:57 | disposition home or self-care (01) ==
LOC: C.ER 22:03
DX: F10.129 Alcohol abuse with intoxication, unspecified (principal); Y90.9 Presence of alcohol in blood, level not specified

== ENCOUNTER 2017-12-14 19:25 | Emergency (ER) | payer OTHER ==
[2017-12-14 19:26] VITALS: BMI 35.5
[2017-12-14 19:40] VITALS: TEMP 98.6
--- NOTE | 2017-12-14 19:55 | C.PDOC ---
History Of Present Illness 52 year old male patient brought to the ER by EMS due to public intoxication. Patient had many prior visits with the same complaint. Patient denies SI/HI. Time Seen by Provider: 12/14/17 19:28 Chief Complaint (Nursing): Substance Abuse History Per: Patient, EMS History/Exam Limitations: no limitations Onset/Duration Of Symptoms: Mins Current Symptoms Are (Timing): Still Present Modifying Factor(s): Alcohol Past Medical History Reviewed: Historical Data, Nursing Documentation, Vital Signs Vital Signs: Last Vital Signs Temp 98.6 F 12/14/17 19:36 Pulse 103 H 12/14/17 19:36 Resp 12 12/14/17 19:36 BP 164/90 H 12/14/17 19:36 Pulse Ox 95 12/14/17 20:50 - Medical History PMH: Asthma, HTN, Hypercholesterolemia Surgical History: Endoscopy - [facility] Procedures ALCOHOL DETOXIFICATION (01/03/13) COLONOSCOPY (01/03/13) EXCISION OF DESCENDING COLON, ENDO, DIAGN (02/22/15) EXCISION OF STOMACH, ENDO, DIAGN (07/05/15) OTHER ENDOSCOPY OF SM INTEST (01/03/13) Family History: States: Unknown Family Hx - Social History Hx Tobacco Use: Yes (former smoker) Hx Alcohol Use: Yes (beer) Hx Substance Use: No - Immunization History Hx Tetanus Toxoid Vaccination: No Hx Influenza Vaccination: No Hx Pneumococcal Vaccination: No Review Of Systems Except As Marked, All Systems Reviewed And Found Negative. Psych: Negative for: Suicidal ideation, Other (homicidal ideation) Physical Exam - Physical Exam Appears: Well, Non-toxic, No Acute Distress, Other (obese) Skin: Normal Color, Warm, Dry Head: Atraumatic, Normacephalic Eye(s): bilateral: Normal Inspection Nose: Normal Oral Mucosa: Moist Throat: Normal, Other (alcoholic breath) Neck: Normal ROM, Supple Chest: Symmetrical, No Deformity Cardiovascular: Rhythm Regular Respiratory: Normal Breath Sounds Back: No CVA Tenderness Extremity: Normal ROM (x4) Neurological/Psych: Oriented x3, Normal Speech Gait: Steady ED Course And Treatment O2 Sat by Pulse Oximetry: 95 (RA) Pulse Ox Interpretation: Normal Reevaluation Time: 23:12 Reassessment Condition: Improved (stable gait, wants d/c to street- needs to work in AM) Medical Decision Making Medical Decision Making: Impression: public intoxication Reassess: Patient is ambulatory, clinically sober. Patient was told about outpatient care including available detox programs and preparation of discharge records. Patient is stable for discharge and outpatient therapy f/u. Disposition Doctor Will See Patient In The: Office Counseled Patient/Family Regarding: Studies Performed, Diagnosis - Disposition Disposition: HOME/ ROUTINE Disposition Time: 23:12 Condition: GOOD Forms: [facility] (Spanish) - Clinical Impression Clinical Impression: Alcohol abuse - Scribe Statement The provider has reviewed the documentation as recorded by the Jaspreet Garcia Do Provider Attestation: All medical record entries made by the Jaspreet were at my direction and personally dictated by me. I have reviewed the chart and agree that the record accurately reflects my personal performance of the history, physical exam, medical decision making, and the department course for this patient. I have also personally directed, reviewed, and agree with the discharge instructions and disposition.
[2017-12-14 23:25] VITALS: BP 134/90; PULSE 89; RESP 20; O2SAT 97
== END 2017-12-14 23:24 | disposition home or self-care (01) ==
LOC: C.ER 19:25
DX: F10.10 Alcohol abuse, uncomplicated (principal); Y90.9 Presence of alcohol in blood, level not specified

== ENCOUNTER 2018-01-25 19:53 | Emergency (ER) | payer OTHER ==
[2018-01-25 19:53] VITALS: BMI 35.5
--- NOTE | 2018-01-25 20:29 | C.PDOC ---
History Of Present Illness 52 year old male presents to the emergency department with complaints of a healing ulcer on the back of his left leg for the last two weeks. Patient states that he occasionally drinks alcohol. He denies trauma, fever, chills, nausea, and vomiting. Time Seen by Provider: 01/25/18 20:29 Chief Complaint (Nursing): Abnormal Skin Integrity History Per: Patient History/Exam Limitations: no limitations Onset/Duration Of Symptoms: Other (two weeks) Current Symptoms Are (Timing): Still Present Location Of Injury: Left: Leg, Posterior: Leg Quality Of Symptoms: Swollen, Other (ulcer) Severity: Moderate Pain Scale Rating Of: 4 Recent travel outside of the [place]: No Additional History Per: Patient Past Medical History Reviewed: Historical Data, Nursing Documentation, Vital Signs Vital Signs: Last Vital Signs Temp 98 F 01/25/18 20:02 Pulse 94 H 01/25/18 20:02 Resp 16 01/25/18 20:02 BP 162/89 H 01/25/18 20:02 Pulse Ox 98 01/25/18 20:02 - Medical History PMH: Asthma, HTN, Hypercholesterolemia Denies: Chronic Kidney Disease Surgical History: Endoscopy - [facility] Procedures ALCOHOL DETOXIFICATION (01/03/13) COLONOSCOPY (01/03/13) EXCISION OF DESCENDING COLON, ENDO, DIAGN (02/22/15) EXCISION OF STOMACH, ENDO, DIAGN (07/05/15) OTHER ENDOSCOPY OF SM INTEST (01/03/13) Family History: States: No Known Family Hx - Social History Hx Tobacco Use: Yes (former smoker) Hx Alcohol Use: Yes (beer) Hx Substance Use: No - Immunization History Hx Tetanus Toxoid Vaccination: No Hx Influenza Vaccination: No Hx Pneumococcal Vaccination: No Review Of Systems Constitutional: Negative for: Fever, Chills Musculoskeletal: Positive for: Leg Pain Skin: Positive for: Lesions, Other (healing ulcer) Neurological: Negative for: Weakness Psych: Negative for: Anxiety Physical Exam - Physical Exam Appears: Non-toxic, No Acute Distress Skin: Warm, Dry, Other (poor vascular skin changes to the bilateral lower extremities. 1.5 cm x 2cm circular, healing ulcer with surrounding erythema to the posterior left calf. ) Oral Mucosa: Moist Neck: Supple Extremity: Normal ROM (all extremities), No Tenderness, Capillary Refill (< 2 seconds), No Swelling Extremity: Bilateral: Atraumatic Pulses: Left Dorsalis Pedis: Normal, Right Dorsalis Pedis: Normal Neurological/Psych: Oriented x3 Gait: Steady ED Course And Treatment - Laboratory Results Result Diagrams: 01/25/18 20:52 01/25/18 20:52 O2 Sat by Pulse Oximetry: 98 (RA) Pulse Ox Interpretation: Normal Progress Note: Plan: VBG. Beta Hydroxybutyrate. CMP. Drug Screen. CBC. PTT. Prothrombin Time. Blood Culture. Urinalysis Reevaluation Time: 22:46 Reassessment Condition: Improved Medical Decision Making Medical Decision Making: Upon provider reevaluation patient is feeling better, is medically stable, and requires no further treatment in the ED at this time. Patient will be discharged home with Rx for keflex and bactrim. Counseling was provided and all questions were answered regarding diagnosis and need for follow up with dr cortes. There is agreement to discharge plan. Return if symptoms persist or worsen. Disposition Counseled Patient/Family Regarding: Studies Performed, Diagnosis, Need For Followup, Rx Given - Disposition Referrals: Stephenie Cortes MD [Staff Provider] - Disposition: HOME/ ROUTINE Disposition Time: 20:29 Condition: FAIR Additional Instructions: Please return if symptoms recur Prescriptions: Cephalexin [Keflex] 500 mg PO TID #30 capsule Sulfamethoxazole/Trimethoprim [Bactrim DS 800 mg-160 mg] 1 tab PO BID #20 tab Instructions: Cellulitis (Skin Infection), Adult (DC) Forms: [employer] [employer] [facility] (Welsh) - Clinical Impression Clinical Impression: Cellulitis, Leg ulcer, left - Scribe Statement The provider has reviewed the documentation as recorded by the Jeremyibe (Mode Perry) Provider Attestation: All medical record entries made by the Scribe were at my direction and personally dictated by me. I have reviewed the chart and agree that the record accurately reflects my personal performance of the history, physical exam, medical decision making, and the department course for this patient. I have also personally directed, reviewed, and agree with the discharge instructions and disposition.
[2018-01-25 20:58] LABS: VENOUS BLOOD GAS BASE EXCESS 1.9 mmol/L (0.0-2.0); VENOUS BLOOD GAS PCO2 41 mmHg (40-60); VENOUS BLOOD GAS PO2 43 mm/Hg (30-55); VENOUS BLOOD PH 7.42 (7.32-7.43)
[2018-01-25 21:06] LABS: BASO % 1.2 % (0.0-2.0); EOS # 0.1 K/uL (0.0-0.7); EOS % 2.3 % (0.0-4.0); HEMOGLOBIN 9.3 g/dL (12.0-18.0); LYMPH # 1.1 K/uL (1.0-4.3); LYMPH % 28.5 % (20.0-40.0); MEAN CORPUSCULAR HEMOGLOBIN 32.5 pg (27.0-31.0); MEAN CORPUSCULAR HGB CONC 33.2 g/dL (33.0-37.0); MONO # 0.3 K/uL (0.0-0.8); NEUT # 2.3 K/uL (1.8-7.0); NRBC % 0.1 % (0.0-2.0); RBC 2.85 Mil/uL (4.40-5.90); RED CELL DISTRIBUTION WIDTH 21.7 % (11.5-14.5); WHITE BLOOD COUNT 3.9 K/uL (4.8-10.8)
[2018-01-25 21:08] LABS: ALB/GLOB RATIO 0.6 (1.0-2.1); ALBUMIN 2.6 g/dL (3.5-5.0); ALT/SGPT 34 U/L (21-72); AST/SGOT 66 U/L (17-59); BLOOD UREA NITROGEN 8 mg/dL (9-20); GFR NON-AFRICAN AMERICAN > 60
[2018-01-25 21:10] LABS: INR 1.8
[2018-01-25 21:40] VITALS: PULSE 89
[2018-01-25] MEDS ORDERED: CEFAZOLIN IVPB STA (22:32)
[2018-01-25] MEDS ORDERED: DEXTROSE 5% IVPB STA (22:32)
[2018-01-25] MEDS ORDERED: WATER IVPB STA (22:32)
[2018-01-25 23:16] VITALS: BP 138/78; RESP 18; TEMP 99.3; O2SAT 97
== END 2018-01-25 23:17 | disposition home or self-care (01) ==
LOC: C.ER 19:53
DX: L97.929 Non-pressure chronic ulcer of unspecified part of left lower leg with unspecified severity (principal); L03.116 Cellulitis of left lower limb; I10 Essential (primary) hypertension; E78.00 Pure hypercholesterolemia, unspecified; Z87.891 Personal history of nicotine dependence
CPT/HCPCS: 80053; 82009; 82803; 85025; 85610; 85730; 87040; 96365; 99283; J0690

== ENCOUNTER 2018-04-23 15:52 | Inpatient (IN) | payer OTHER ==
[2018-04-23 15:53] VITALS: BMI 35.5
[2018-04-23 16:39] LABS: BASO % 0.9 % (0.0-2.0); EOS # 0.1 K/uL (0.0-0.7); EOS % 2.6 % (0.0-4.0); LYMPH # 1.4 K/uL (1.0-4.3); LYMPH % 37.5 % (20.0-40.0); MEAN CELL VOLUME 71.9 fL (80.0-94.0); MEAN CORPUSCULAR HEMOGLOBIN 20.5 pg (27.0-31.0); MEAN CORPUSCULAR HGB CONC 28.5 g/dL (33.0-37.0); MEAN PLATELET VOLUME 8.2 fL (7.2-11.7); MONO # 0.3 K/uL (0.0-0.8); MONO % 9.1 % (0.0-10.0); NEUT # 1.8 K/uL (1.8-7.0); NEUT % 49.9 % (50.0-75.0); NRBC % 0.2 % (0.0-2.0); RBC 2.51 Mil/uL (4.40-5.90); RED CELL DISTRIBUTION WIDTH 21.6 % (11.5-14.5); WHITE BLOOD COUNT 3.6 K/uL (4.8-10.8)
[2018-04-23 16:46] LABS: HEMOGLOBIN 5.1 g/dL (12.0-18.0)
[2018-04-23 16:54] LABS: INR 2.1; PROTHROMBIN TIME 22.6 SECONDS (9.7-12.2)
[2018-04-23 17:01] LABS: ALB/GLOB RATIO 0.7 (1.0-2.1); ALBUMIN 2.7 g/dL (3.5-5.0); ALT/SGPT 18 U/L (21-72); AST/SGOT 27 U/L (17-59); BLOOD UREA NITROGEN 8 mg/dL (9-20); CALCIUM 7.8 mg/dl (8.6-10.4); GFR NON-AFRICAN AMERICAN > 60
--- NOTE | 2018-04-23 17:14 | RAD ---
HISTORY: adm COMPARISON: Chest x-ray performed 12/23/15. TECHNIQUE: Chest, one view. FINDINGS: Examination limited by habitus and hypoinflation. LUNGS: No focal consolidation. Please note that chest x-ray has limited sensitivity for the detection of pulmonary masses. PLEURA: No significant pleural effusion identified. No definite pneumothorax . CARDIOVASCULAR: Heart size appears top-normal. No significant atherosclerotic calcification present. OSSEOUS STRUCTURES: No acute osseous abnormality identified. VISUALIZED UPPER ABDOMEN: Mild elevation of the right hemidiaphragm. OTHER FINDINGS: None. IMPRESSION: No focal consolidation identified.
--- NOTE | 2018-04-23 17:46 | C.PDOC ---
History Of Present Illness 52 year old male presents to the emergency department, after being referred by his PMD for chronic anemia. Patient is a recovering alcoholic, and states that his last drink was two months ago. Patient has many ED evaluations for alcohol- related issues. Patient's last ED visit was in November 2017. Patient presents today for intermittent dark, tarry stools and occasional bright-red blood at the rectum. Patient's recently had outpatient labs done with Dr. Cortes, who he hasn't seen in the last three years, and had a hemoglobin less than 5. Patient's last hemoglobin was 9.3. Patient has no other complaints at this time. Time Seen by Provider: 04/23/18 16:12 Chief Complaint (Nursing): Abnormal Labs History Per: Patient History/Exam Limitations: no limitations Onset/Duration Of Symptoms: Intermittent Episodes Current Symptoms Are (Timing): Still Present Past Medical History Reviewed: Historical Data, Nursing Documentation, Vital Signs Vital Signs: Last Vital Signs Temp 98.6 F 04/23/18 17:37 Pulse 91 H 04/23/18 17:37 Resp 18 04/23/18 17:37 BP 140/67 04/23/18 17:37 Pulse Ox 100 04/23/18 17:37 - Medical History PMH: Asthma, HTN, Hypercholesterolemia Denies: Chronic Kidney Disease Surgical History: Endoscopy - [facility] Procedures ALCOHOL DETOXIFICATION (01/03/13) COLONOSCOPY (01/03/13) EXCISION OF DESCENDING COLON, ENDO, DIAGN (02/22/15) EXCISION OF STOMACH, ENDO, DIAGN (07/05/15) OTHER ENDOSCOPY OF SM INTEST (01/03/13) Family History: States: No Known Family Hx - Social History Hx Tobacco Use: Yes (former smoker) Hx Alcohol Use: Yes (beer) Hx Substance Use: No - Immunization History Hx Tetanus Toxoid Vaccination: No Hx Influenza Vaccination: No Hx Pneumococcal Vaccination: No Review Of Systems Except As Marked, All Systems Reviewed And Found Negative. Constitutional: Negative for: Fever, Chills Gastrointestinal: Positive for: Melena, Other (bright red blood at rectum) Physical Exam - Physical Exam Appears: Non-toxic, No Acute Distress, Other (obese) Skin: Normal Color, Warm, Dry Head: Atraumatic, Normacephalic Eye(s): bilateral: PERRL, EOMI, Conjunctiva Pale, Other (non-icteric) Nose: Normal, Flaring Oral Mucosa: Moist Neck: Normal, Supple Chest: Symmetrical, No Tenderness Cardiovascular: Rhythm Regular, JVD Respiratory: Normal Breath Sounds, No Rales, No Rhonchi, No Wheezing Gastrointestinal/Abdominal: Soft, No Tenderness, No Guarding, No Rebound, Ascites (questionable shifting dullness), Other (obese) Rectal: Hemorrhoids (one external hemorrhoid (non-bleeding), one internal hemorrhoid (non-bleeding)), Other (light-brown stool) Extremity: Normal ROM Neurological/Psych: Oriented x3, Normal Speech, Normal Cognition ED Course And Treatment - Laboratory Results Result Diagrams: 04/23/18 16:33 04/23/18 16:33 Lab Interpretation: Abnormal (+ microcytic anemia) ECG: Interpreted By Me ECG Rhythm: Sinus Rhythm ECG Interpretation: Normal Rate From EC O2 Sat by Pulse Oximetry: 100 (RA) Pulse Ox Interpretation: Normal - Radiology CXR: Interpreted by Me CXR Interpretation: Yes: Heart Size Reevaluation Time: 17:46 Reassessment Condition: Improved - Physician Consult Information Outcome Of Conversation: 1744: d/w Dr. Devyn man to admit to Tele Adm. OK to consult GI Dr. Walton, Marketing And Communications Officer Medical Decision Making Medical Decision Making: chronic alcoholism, Stopped ETOH 2 months ago still watch for w/d s/s GI: Prob chronic upper GI bleeding, now stopped light brown stools, guaiac neg. + portal hypertension Protonix IV Consider upper endoscopy w GI no active bleeding now, stable for Tele Adm HGB 5.1 chronic microcytic anemia (noted by PMD 2 weeks ago) Blood Tx's overnight, started in ED Plan: Plan: Blood Bank EKG Chemistry Bloodwork CXR Protonix 40mg IVP Urinalysis Occult Blood Stool Disposition Doctor Will See Patient In The: Hospital Counseled Patient/Family Regarding: Studies Performed, Diagnosis - Disposition Disposition: HOSPITALIZED Disposition Time: 17:49 Condition: GOOD - Clinical Impression Clinical Impression: Symptomatic anemia, Alcoholic cirrhosis of liver with ascites - Scribe Statement The provider has reviewed the documentation as recorded by the Scribe (Mode Perry) Provider Attestation: All medical record entries made by the Scribe were at my direction and personally dictated by me. I have reviewed the chart and agree that the record accurately reflects my personal performance of the history, physical exam, medical decision making, and the department course for this patient. I have also personally directed, reviewed, and agree with the discharge instructions and disposition.
--- NOTE | 2018-04-23 19:32 | CP.PCM.HP ---
History of Present Illness - History of Present Illness History of Present Illness: 52 year old male presents to the emergency department, after being referred by his PMD for chronic anemia. Patient is a recovering alcoholic, and states that his last drink was two months ago. Patient has many ED evaluations for alcohol- related issues. Patient's last ED visit was in November 2017. Patient presents today for intermittent dark, tarry stools and occasional bright-red blood at the rectum. Patient's recently had outpatient labs done with Dr. Cortes, who he hasn't seen in the last three years, and had a hemoglobin less than 5. Patient's last hemoglobin was 9.3. Patient has no other complaints at this time. Present on Admission - Present on Admission Any Indicators Present on Admission: No Review of Systems - Review of Systems All systems: reviewed and no additional remarkable complaints except (blacked starry stool, and weakness and lightheadedness) Past Patient History - Infectious Disease Hx of Infectious Diseases: None - Past Medical History & Family History Past Medical History?: Yes - Past Social History Smoking Status: Light Smoker < 10 Cigarettes Daily - CARDIAC Hx Hypercholesterolemia: Yes Hx Hypertension: Yes - PULMONARY Hx Asthma: Yes - NEUROLOGICAL Hx Neurological Disorder: No - HEENT Hx HEENT Problems: No - RENAL Hx Chronic Kidney Disease: No - ENDOCRINE/METABOLIC Hx Endocrine Disorders: No - HEMATOLOGICAL/ONCOLOGICAL Hx Blood Disorders: No - INTEGUMENTARY Hx Dermatological Problems: No - MUSCULOSKELETAL/RHEUMATOLOGICAL Hx Musculoskeletal Disorders: No Hx Falls: No - GASTROINTESTINAL Hx Gastrointestinal Disorders: No - GENITOURINARY/GYNECOLOGICAL Hx Genitourinary Disorders: No - PSYCHIATRIC Hx Substance Use: No - SURGICAL HISTORY Other/Comment: Left knee surgery 30 yrs ago. - ANESTHESIA Hx Anesthesia: Yes (EPIDURAL) Hx Anesthesia Reactions: No Hx Malignant Hyperthermia: No Meds Allergies/Adverse Reactions: Allergies Allergy/AdvReac Type Severity Reaction Status Date / Time No Known Allergies Allergy Verified 04/23/18 16:11 Physical Exam - Constitutional Appears: Well - Head Exam Head Exam: ATRAUMATIC, NORMAL INSPECTION, NORMOCEPHALIC - Eye Exam Eye Exam: PERRL - ENT Exam ENT Exam: Mucous Membranes Moist, Normal Exam - Neck Exam Neck exam: Positive for: Normal Inspection - Respiratory Exam Respiratory Exam: Clear to Auscultation Bilateral, NORMAL BREATHING PATTERN - Cardiovascular Exam Cardiovascular Exam: REGULAR RHYTHM - GI/Abdominal Exam GI & Abdominal Exam: Normal Bowel Sounds, Soft. absent: Tenderness - Rectal Exam Rectal Exam: Black Stool - Extremities Exam Extremities exam: Positive for: normal inspection - Back Exam Back exam: NORMAL INSPECTION Results - Vital Signs Recent Vital Signs: Last Vital Signs Temp 98.7 F 04/23/18 19:15 Pulse 91 H 04/23/18 19:15 Resp 20 04/23/18 19:15 BP 127/67 04/23/18 19:15 Pulse Ox 100 04/23/18 19:15 - Labs Result Diagrams: 04/24/18 10:56 04/24/18 10:56 Labs: Laboratory Results - last 24 hr 04/23/18 04/23/18 04/23/18 16:33 16:33 16:33 WBC 3.6 L RBC 2.51 L Hgb 5.1 L* D Hct 18.1 L MCV 71.9 L D MCH 20.5 L MCHC 28.5 L RDW 21.6 H Plt Count 82 L D MPV 8.2 Neut % (Auto) 49.9 L Lymph % (Auto) 37.5 [place] % (Auto) 9.1 Eos % (Auto) 2.6 Baso % (Auto) 0.9 Neut # (Auto) 1.8 Lymph # (Auto) 1.4 [place] # (Auto) 0.3 Eos # (Auto) 0.1 Baso # (Auto) 0.0 PT 22.6 H INR 2.1 APTT 36 H Sodium 138 Potassium 3.9 Chloride 109 H Carbon Dioxide 22 Anion Gap 11 BUN 8 L Creatinine 0.6 L Est GFR ( Amer) > 60 Est GFR (Non-Af Amer) > 60 Random Glucose 103 Calcium 7.8 L Total Bilirubin 1.4 H AST 27 ALT 18 L D Alkaline Phosphatase 149 H D Total Protein 6.6 Albumin 2.7 L Globulin 3.9 Albumin/Globulin Ratio 0.7 L Stool Occult Blood Blood Type Antibody Screen 04/23/18 04/23/18 16:33 16:48 WBC RBC Hgb Hct MCV MCH MCHC RDW Plt Count MPV Neut % (Auto) Lymph % (Auto) [place] % (Auto) Eos % (Auto) Baso % (Auto) Neut # (Auto) Lymph # (Auto) [place] # (Auto) Eos # (Auto) Baso # (Auto) PT INR APTT Sodium Potassium Chloride Carbon Dioxide Anion Gap BUN Creatinine Est GFR ( Amer) Est GFR (Non-Af Amer) Random Glucose Calcium Total Bilirubin AST ALT Alkaline Phosphatase Total Protein Albumin Globulin Albumin/Globulin Ratio Stool Occult Blood Negative Blood Type O POSITIVE Antibody Screen Negative Assessment & Plan (1) Alcoholic cirrhosis of liver with ascites Status: Acute (2) Symptomatic anemia Status: Acute (3) Upper GI bleed Status: Acute Priority: High
[2018-04-23] MEDS: Dextrose 5%/0.45% NS 1,000 ML IV SCH (23:03)
[2018-04-24] MEDS: Dextrose 5%/0.45% NS 1,000 ML IV SCH (06:30)
--- NOTE | 2018-04-24 08:08 | CP.PCM.CON ---
History of Present Illness - History of Present Illness History of Present Illness: Pt seen with RN. h/o cirrhosis, OA asked to see pt for severe anemia. Found incidental Hb 4 in PMD/ Denies RB, melena, fever, chills, SZ, abdom pain, PUD. ++ NSAID for knee OA, Review of Systems - Constitutional Constitutional: Fatigue, Weakness. absent: Weight Loss - EENT Eyes: absent: Photophobia Nose/Mouth/Throat: absent: Dysphagia, Throat Swelling - Cardiovascular Cardiovascular: absent: Chest Pain, Dyspnea, Palpitations - Respiratory Respiratory: absent: Cough, Dyspnea, Hemoptysis, Wheezing - Gastrointestinal Gastrointestinal: absent: Abdominal Pain, Coffee Ground Emesis, Constipation, Diarrhea, Dysphagia, Hematemesis, Hematochezia, Melena, Nausea, Vomiting - Genitourinary Genitourinary: absent: Hematuria - Musculoskeletal Musculoskeletal: absent: Muscle Cramps, Myalgias - Integumentary Integumentary: absent: Rash, Jaundice - Neurological Neurological: absent: Convulsions, Headaches Past Patient History - Infectious Disease Hx of Infectious Diseases: None - Past Medical History & Family History Past Medical History?: Yes - Past Social History Smoking Status: Light Smoker < 10 Cigarettes Daily - CARDIAC Hx Hypercholesterolemia: Yes Hx Hypertension: Yes - PULMONARY Hx Asthma: Yes - NEUROLOGICAL Hx Neurological Disorder: No - HEENT Hx HEENT Problems: No - RENAL Hx Chronic Kidney Disease: No - ENDOCRINE/METABOLIC Hx Endocrine Disorders: No - HEMATOLOGICAL/ONCOLOGICAL Hx Blood Disorders: No - INTEGUMENTARY Hx Dermatological Problems: No - MUSCULOSKELETAL/RHEUMATOLOGICAL Hx Musculoskeletal Disorders: No Hx Falls: No - GASTROINTESTINAL Hx Gastrointestinal Disorders: No - GENITOURINARY/GYNECOLOGICAL Hx Genitourinary Disorders: No - PSYCHIATRIC Hx Substance Use: No - SURGICAL HISTORY Other/Comment: Left knee surgery 30 yrs ago. - ANESTHESIA Hx Anesthesia: Yes (EPIDURAL) Hx Anesthesia Reactions: No Hx Malignant Hyperthermia: No Meds Allergies/Adverse Reactions: Allergies Allergy/AdvReac Type Severity Reaction Status Date / Time No Known Allergies Allergy Verified 04/23/18 16:11 - Medications Medications: Current Medications Famotidine (Pepcid) 20 mg IVP Q8 [facility] Last Admin: 04/24/18 07:00 Dose: 20 mg Dextrose/Sodium Chloride (Dextrose 5%/0.45% Ns 1000 Ml) 1,000 mls @ 80 mls/hr IV .[id number] [facility] Last Admin: 04/24/18 06:30 Dose: 80 mls/hr Pantoprazole Sodium (Protonix Inj) 40 mg IVP Q12H [facility] Last Admin: 04/23/18 23:07 Dose: 40 mg Physical Exam - Constitutional Appears: Well - Respiratory Exam Respiratory Exam: Clear to Auscultation Bilateral - Cardiovascular Exam Cardiovascular Exam: RRR - GI/Abdominal Exam GI & Abdominal Exam: Normal Bowel Sounds, Soft. absent: Distended, Guarding, Mass, Rebound, Tenderness - Extremities Exam Extremities exam: Negative for: calf tenderness - Neurological Exam Neurological exam: Alert, Oriented x3 Results - Vital Signs Recent Vital Signs: Last Vital Signs Temp 98.2 F 04/24/18 06:18 Pulse 84 04/24/18 06:18 Resp 20 04/24/18 06:18 BP 130/76 04/24/18 06:18 Pulse Ox 98 04/24/18 01:58 - Labs Result Diagrams: 04/23/18 16:33 04/23/18 16:33 Labs: Laboratory Results - last 24 hr 04/23/18 04/23/18 04/23/18 16:33 16:33 16:33 WBC 3.6 L RBC 2.51 L Hgb 5.1 L* D Hct 18.1 L MCV 71.9 L D MCH 20.5 L MCHC 28.5 L RDW 21.6 H Plt Count 82 L D MPV 8.2 Neut % (Auto) 49.9 L Lymph % (Auto) 37.5 [place] % (Auto) 9.1 Eos % (Auto) 2.6 Baso % (Auto) 0.9 Neut # (Auto) 1.8 Lymph # (Auto) 1.4 [place] # (Auto) 0.3 Eos # (Auto) 0.1 Baso # (Auto) 0.0 PT 22.6 H INR 2.1 APTT 36 H Sodium 138 Potassium 3.9 Chloride 109 H Carbon Dioxide 22 Anion Gap 11 BUN 8 L Creatinine 0.6 L Est GFR ( Amer) > 60 Est GFR (Non-Af Amer) > 60 Random Glucose 103 Calcium 7.8 L Total Bilirubin 1.4 H AST 27 ALT 18 L D Alkaline Phosphatase 149 H D Total Protein 6.6 Albumin 2.7 L Globulin 3.9 Albumin/Globulin Ratio 0.7 L Stool Occult Blood Blood Type Antibody Screen 04/23/18 04/23/18 16:33 16:48 WBC RBC Hgb Hct MCV MCH MCHC RDW Plt Count MPV Neut % (Auto) Lymph % (Auto) [place] % (Auto) Eos % (Auto) Baso % (Auto) Neut # (Auto) Lymph # (Auto) [place] # (Auto) Eos # (Auto) Baso # (Auto) PT INR APTT Sodium Potassium Chloride Carbon Dioxide Anion Gap BUN Creatinine Est GFR ( Amer) Est GFR (Non-Af Amer) Random Glucose Calcium Total Bilirubin AST ALT Alkaline Phosphatase Total Protein Albumin Globulin Albumin/Globulin Ratio Stool Occult Blood Negative Blood Type O POSITIVE Antibody Screen Negative Assessment & Plan (1) Anemia Assessment and Plan: Takes NSAIDs- consider PUD. COnsider varices.- has cirrhosis/ Hb- stable x 2 weeks. DENIES GI bleed to me/ REc- PPI, check Hb, vitamin K, EGD Status: Acute (2) Cirrhosis Assessment and Plan: ETOH. LOw PLT and elev INR Status: Acute (3) Alcohol abuse Assessment and Plan: Reports no etoh x 2 months Status: Chronic Priority: Medium
[2018-04-24] MEDS ORDERED: Phytonadione 10 mg/ml Inj (Adult) SC ONE (08:12)
[2018-04-24 11:09] LABS: BASO % 0.8 % (0.0-2.0); EOS # 0.1 K/uL (0.0-0.7); EOS % 3.8 % (0.0-4.0); HEMOGLOBIN 6.6 g/dL (12.0-18.0); INR 2.1; LYMPH # 0.8 K/uL (1.0-4.3); LYMPH % 31.8 % (20.0-40.0); MEAN CORPUSCULAR HEMOGLOBIN 22.7 pg (27.0-31.0); MEAN CORPUSCULAR HGB CONC 30.3 g/dL (33.0-37.0); MEAN PLATELET VOLUME 8.2 fL (7.2-11.7); MONO # 0.3 K/uL (0.0-0.8); MONO % 10.9 % (0.0-10.0); NEUT # 1.3 K/uL (1.8-7.0); NEUT % 52.7 % (50.0-75.0); NRBC % 0.2 % (0.0-2.0); PROTHROMBIN TIME 23.5 SECONDS (9.7-12.2); RBC 2.9 Mil/uL (4.40-5.90); RED CELL DISTRIBUTION WIDTH 22.1 % (11.5-14.5); WHITE BLOOD COUNT 2.4 K/uL (4.8-10.8)
[2018-04-24 11:12] LABS: MEAN CELL VOLUME 74.8 fL (80.0-94.0)
[2018-04-24 11:32] LABS: ALB/GLOB RATIO 0.6 (1.0-2.1); ALBUMIN 2.3 g/dL (3.5-5.0); ALT/SGPT 21 U/L (21-72); AST/SGOT 24 U/L (17-59); BILIRUBIN,DIRECT 0.8 mg/dL (0.0-0.4); BLOOD UREA NITROGEN 8 mg/dL (9-20); CALCIUM 7.7 mg/dl (8.6-10.4); GFR NON-AFRICAN AMERICAN > 60
[2018-04-24] MEDS ORDERED: Etomidate 20 mg/10ml Inj IV ONE ×2 (12:06→12:12)
--- NOTE | 2018-04-24 14:06 | CP.PCM.PN ---
Subjective - Date & Time of Evaluation Date of Evaluation: 04/24/18 Time of Evaluation: 14:04 - Subjective Subjective: CHIEF COMPLAINTS TODAY : Patient received 3 units of packed cells, hemoglobin repeat is pending There is no visible upper or lower GI bleeding No other complaints ROS. HEENT : N. Resp : No cough, wheezing ,pleuritic CP ,or hemoptysis Cardio : No anginal CP, PND, orthopnea, palpitation GI : No abd.pain, n/v ,diarrhea or GI bleeding . 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 Musculoskel : No joint swelling , Derm : No rash Psych : Normal affect. Ext : No swelling ,calf pain PE. Pt. is alert awake in no distress. V.S As noted in the chart Head ,ear nose,throat and eyes : Normal. Neck : Supple with normal carotids. Lungs: Clear air entry. Heart : S1 & S2 normal with S4. No murmur. Abd : Soft non tender with normal bowel sounds. Neuro : Moves all ext. with no localized deficit. Ext : No edema with intact pulses.Non tender calves Derm : No rashes or decubitus ulcer. LABS/RADIOLOGY: ASSESSMENT/PLAN : Follow hemoglobin hematocrit GI evaluation noted May need upper endoscopy. Objective - Vital Signs/Intake and Output Vital Signs (last 24 hours): Temp Pulse Resp BP Pulse Ox 98.4 F 79 18 130/69 98 04/24/18 12:45 04/24/18 12:45 04/24/18 12:45 04/24/18 12:45 04/24/18 12:45 Intake and Output: 04/24/18 04/24/18 11:59 23:59 Intake Total 1275 100 Output Total 1100 Balance 175 100 - Medications Medications: Current Medications Famotidine (Pepcid) 20 mg IVP Q8 [facility] Last Admin: 04/24/18 07:00 Dose: 20 mg Dextrose/Sodium Chloride (Dextrose 5%/0.45% Ns 1000 Ml) 1,000 mls @ 80 mls/hr IV .[id number] [facility] Last Admin: 04/24/18 06:30 Dose: 80 mls/hr Influenza Virus Vaccine (Fluzone Quad [id number]) 60 mcg IM .ONCE ONE Stop: 04/25/18 10:01 Pantoprazole Sodium (Protonix Inj) 40 mg IVP Q12H [facility] Last Admin: 04/24/18 09:00 Dose: 40 mg - Labs Labs: 04/24/18 10:56 04/24/18 10:56 PT 23.5 SECONDS (9.7-12.2) H 04/24/18 10:56 INR 2.1 04/24/18 10:56 APTT 36 SECONDS (21-34) H 04/23/18 16:33 Assessment and Plan (1) Alcoholic cirrhosis of liver with ascites Status: Acute (2) Symptomatic anemia Status: Acute (3) Upper GI bleed Status: Acute
--- NOTE | 2018-04-24 22:24 | CARD ---
APPROVED REPORT Date of service: 04/23/2018 EKG Measurement Heart [id number] <Conclusion> Normal sinus rhythm Septal infarct, age undetermined Prolonged QT Abnormal ECG
[2018-04-25] MEDS: Dextrose 5%/0.45% NS 1,000 ML IV SCH ×2 (01:11→14:48)
[2018-04-25 03:13] VITALS: RESP 20
[2018-04-25 07:45] LABS: BASO % 1.1 % (0.0-2.0); EOS # 0.1 K/uL (0.0-0.7); HEMOGLOBIN 7.7 g/dL (12.0-18.0); LYMPH # 1.2 K/uL (1.0-4.3); LYMPH % 37.7 % (20.0-40.0); MEAN CELL VOLUME 75.8 fL (80.0-94.0); MEAN CORPUSCULAR HGB CONC 31.7 g/dL (33.0-37.0); MEAN PLATELET VOLUME 8.4 fL (7.2-11.7); MONO # 0.3 K/uL (0.0-0.8); MONO % 8.6 % (0.0-10.0); NEUT # 1.6 K/uL (1.8-7.0); NEUT % 48.6 % (50.0-75.0); NRBC % 0.2 % (0.0-2.0); RBC 3.2 Mil/uL (4.40-5.90); RED CELL DISTRIBUTION WIDTH 21.9 % (11.5-14.5); WHITE BLOOD COUNT 3.2 K/uL (4.8-10.8)
[2018-04-25 08:20] LABS: ALB/GLOB RATIO 0.6 (1.0-2.1); ALBUMIN 2.3 g/dL (3.5-5.0); ALT/SGPT 23 U/L (21-72); AST/SGOT 31 U/L (17-59); BLOOD UREA NITROGEN 9 mg/dL (9-20); CALCIUM 7.5 mg/dl (8.6-10.4); GFR NON-AFRICAN AMERICAN > 60
[2018-04-25] MEDS ORDERED: Influenza Vaccine 60 MCG/0.5 ML SYR (3 yr & up) IM ONE (10:00)
[2018-04-25] MEDS ORDERED: Pneumococcal 23-Valent Vaccine IM ONE (10:00)
[2018-04-25] MEDS ORDERED: Potassium Chloride 20 mEq ER Tab PO STA ×2 (11:50→11:59)
--- NOTE | 2018-04-25 12:33 | CP.PCM.PN ---
Subjective - Date & Time of Evaluation Date of Evaluation: 04/25/18 Time of Evaluation: 12:30 - Subjective Subjective: f/u GI bleed. No bleeding, RB, melena, abdom pain, vomit, fever, hematuria, dysuria Objective - Vital Signs/Intake and Output Vital Signs (last 24 hours): Temp Pulse Resp BP Pulse Ox 98.1 F 83 20 142/77 99 04/25/18 07:00 04/25/18 07:46 04/25/18 07:00 04/25/18 07:00 04/25/18 07:00 Intake and Output: 04/25/18 04/25/18 06:59 18:59 Intake Total 1550 Output Total 800 Balance 750 - Medications Medications: Current Medications Famotidine (Pepcid) 20 mg IVP Q8 [facility] Last Admin: 04/24/18 22:12 Dose: Not Given Dextrose/Sodium Chloride (Dextrose 5%/0.45% Ns 1000 Ml) 1,000 mls @ 80 mls/hr IV .[id number] [facility] Last Admin: 04/25/18 01:11 Dose: Not Given Pantoprazole Sodium (Protonix Inj) 40 mg IVP Q12H [facility] Last Admin: 04/25/18 09:19 Dose: 40 mg - Labs Labs: 04/25/18 07:35 04/25/18 07:35 PT 23.5 SECONDS (9.7-12.2) H 04/24/18 10:56 INR 2.1 04/24/18 10:56 APTT 36 SECONDS (21-34) H 04/23/18 16:33 - Constitutional Appears: Well - Respiratory Exam Respiratory Exam: Clear to Ausculation Bilateral - Cardiovascular Exam Cardiovascular Exam: RRR - GI/Abdominal Exam GI & Abdominal Exam: Soft, Normal Bowel Sounds. absent: Guarding, Tenderness, Mass, Rebound - Extremities Exam Extremities Exam: absent: Calf Tenderness - Neurological Exam Neurological Exam: Alert, Oriented x3 Assessment and Plan (1) Anemia Assessment & Plan: GI bleed. Nohemi ulcer. No active bleeding. Rec- PPI, No NSAIDs. Status: Acute (2) Cirrhosis Assessment & Plan: No varices at current EGD. Avoid alcohol. Status: Acute (3) Alcohol abuse Status: Chronic
--- NOTE | 2018-04-25 13:35 | CP.PCM.PN ---
Subjective - Date & Time of Evaluation Date of Evaluation: 04/25/18 Time of Evaluation: 13:34 - Subjective Subjective: CHIEF COMPLAINTS TODAY : current hemoglobin is 7.7 g/dL. Upper endoscopy shows no varices no active bleeding ROS. HEENT : N. Resp : No cough, wheezing ,pleuritic CP ,or hemoptysis Cardio : No anginal CP, PND, orthopnea, palpitation GI : No abd.pain, n/v ,diarrhea or GI bleeding . MUSICAL THERAPIST : No headache, vertigo, focal deficit. Musculoskel : No joint swelling , Derm : No rash Psych : Normal affect. Ext : No swelling ,calf pain PE. Pt. is alert awake in no distress. V.S As noted in the chart Head ,ear nose,throat and eyes : Normal. Neck : Supple with normal carotids. Lungs: Clear air entry. Heart : S1 & S2 normal with S4. No murmur. Abd : Soft non tender with normal bowel sounds. Neuro : Moves all ext. with no localized deficit. Ext : No edema with intact pulses.Non tender calves Derm : No rashes or decubitus ulcer. LABS/RADIOLOGY: ASSESSMENT/PLAN : Follow hemoglobin hematocrit GI evaluation noted we will repeat another h of 7 will need another unit of blood transfusion Objective - Vital Signs/Intake and Output Vital Signs (last 24 hours): Temp Pulse Resp BP Pulse Ox 98.1 F 83 20 142/77 99 04/25/18 07:00 04/25/18 07:46 04/25/18 07:00 04/25/18 07:00 04/25/18 07:00 Intake and Output: 04/25/18 04/25/18 11:59 23:59 Intake Total 1550 Output Total 800 Balance 750 - Medications Medications: Current Medications Famotidine (Pepcid) 20 mg IVP Q8 [facility] Last Admin: 04/24/18 22:12 Dose: Not Given Dextrose/Sodium Chloride (Dextrose 5%/0.45% Ns 1000 Ml) 1,000 mls @ 80 mls/hr IV .[id number] [facility] Last Admin: 04/25/18 01:11 Dose: Not Given Pantoprazole Sodium (Protonix Inj) 40 mg IVP Q12H [facility] Last Admin: 04/25/18 09:19 Dose: 40 mg - Labs Labs: 04/25/18 07:35 04/25/18 07:35 PT 23.5 SECONDS (9.7-12.2) H 04/24/18 10:56 INR 2.1 04/24/18 10:56 APTT 36 SECONDS (21-34) H 04/23/18 16:33 Assessment and Plan (1) Alcoholic cirrhosis of liver with ascites Status: Acute (2) Symptomatic anemia Status: Acute (3) Upper GI bleed Status: Acute
[2018-04-26 06:39] LABS: HEMOGLOBIN 7.7 g/dL (12.0-18.0); MEAN CELL VOLUME 77.3 fL (80.0-94.0); MEAN CORPUSCULAR HEMOGLOBIN 23.7 pg (27.0-31.0); MEAN CORPUSCULAR HGB CONC 30.6 g/dL (33.0-37.0); MEAN PLATELET VOLUME 8.3 fL (7.2-11.7); RBC 3.25 Mil/uL (4.40-5.90); RED CELL DISTRIBUTION WIDTH 22.1 % (11.5-14.5)
--- NOTE | 2018-04-26 14:22 | CP.PCM.PN ---
Subjective - Date & Time of Evaluation Date of Evaluation: 04/26/18 Time of Evaluation: 14:22 - Subjective Subjective: CHIEF COMPLAINTS TODAY : current hemoglobin is 7.7 g/dL. Upper endoscopy shows no varices no active bleeding ROS. HEENT : N. Resp : No cough, wheezing ,pleuritic CP ,or hemoptysis Cardio : No anginal CP, PND, orthopnea, palpitation GI : No abd.pain, n/v ,diarrhea or GI bleeding . 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 Musculoskel : No joint swelling , Derm : No rash Psych : Normal affect. Ext : No swelling ,calf pain PE. Pt. is alert awake in no distress. V.S As noted in the chart Head ,ear nose,throat and eyes : Normal. Neck : Supple with normal carotids. Lungs: Clear air entry. Heart : S1 & S2 normal with S4. No murmur. Abd : Soft non tender with normal bowel sounds. Neuro : Moves all ext. with no localized deficit. Ext : No edema with intact pulses.Non tender calves Derm : No rashes or decubitus ulcer. LABS/RADIOLOGY: ASSESSMENT/PLAN : Follow hemoglobin hematocrit GI evaluation noted we will repeat another h of 7 will need another unit of blood transfusion Objective - Vital Signs/Intake and Output Vital Signs (last 24 hours): Temp Pulse Resp BP Pulse Ox 98.7 F 83 20 118/65 98 04/26/18 07:00 04/26/18 07:55 04/26/18 07:00 04/26/18 07:00 04/26/18 07:00 - Medications Medications: Current Medications Famotidine (Pepcid) 20 mg IVP Q8 [facility] Last Admin: 04/26/18 05:36 Dose: 20 mg Pantoprazole Sodium (Protonix Inj) 40 mg IVP Q12H [facility] Last Admin: 04/26/18 09:09 Dose: 40 mg - Labs Labs: 04/26/18 06:31 04/25/18 07:35 PT 23.5 SECONDS (9.7-12.2) H 04/24/18 10:56 INR 2.1 04/24/18 10:56 APTT 36 SECONDS (21-34) H 04/23/18 16:33 Assessment and Plan (1) Alcoholic cirrhosis of liver with ascites Status: Acute (2) Symptomatic anemia Status: Acute (3) Upper GI bleed Status: Acute
[2018-04-26 16:33] LABS: BASO % 0.7 % (0.0-2.0); EOS # 0.1 K/uL (0.0-0.7); EOS % 3.6 % (0.0-4.0); HEMOGLOBIN 7.4 g/dL (12.0-18.0); LYMPH # 0.9 K/uL (1.0-4.3); LYMPH % 33.6 % (20.0-40.0); MEAN CELL VOLUME 77.3 fL (80.0-94.0); MEAN CORPUSCULAR HEMOGLOBIN 23.2 pg (27.0-31.0); MEAN CORPUSCULAR HGB CONC 30.1 g/dL (33.0-37.0); MEAN PLATELET VOLUME 8.3 fL (7.2-11.7); MONO # 0.4 K/uL (0.0-0.8); MONO % 13.4 % (0.0-10.0); NEUT # 1.3 K/uL (1.8-7.0); NEUT % 48.7 % (50.0-75.0); NRBC % 0.1 % (0.0-2.0); RBC 3.17 Mil/uL (4.40-5.90); RED CELL DISTRIBUTION WIDTH 22.6 % (11.5-14.5); WHITE BLOOD COUNT 2.7 K/uL (4.8-10.8)
[2018-04-27 08:11] LABS: BASO % 0.7 % (0.0-2.0); EOS # 0.1 K/uL (0.0-0.7); EOS % 4.5 % (0.0-4.0); HEMOGLOBIN 8.1 g/dL (12.0-18.0); LYMPH # 1.1 K/uL (1.0-4.3); LYMPH % 38.2 % (20.0-40.0); MEAN CELL VOLUME 77.4 fL (80.0-94.0); MEAN CORPUSCULAR HEMOGLOBIN 24.3 pg (27.0-31.0); MEAN CORPUSCULAR HGB CONC 31.4 g/dL (33.0-37.0); MEAN PLATELET VOLUME 8.3 fL (7.2-11.7); MONO # 0.3 K/uL (0.0-0.8); MONO % 8.7 % (0.0-10.0); NEUT # 1.4 K/uL (1.8-7.0); NEUT % 47.9 % (50.0-75.0); NRBC % 0.1 % (0.0-2.0); RBC 3.34 Mil/uL (4.40-5.90); RED CELL DISTRIBUTION WIDTH 22.4 % (11.5-14.5)
[2018-04-27 08:32] LABS: ALB/GLOB RATIO 0.6 (1.0-2.1); ALBUMIN 2.3 g/dL (3.5-5.0); ALT/SGPT 20 U/L (21-72); AST/SGOT 28 U/L (17-59); BILIRUBIN,DIRECT 0.6 mg/dL (0.0-0.4); BLOOD UREA NITROGEN 6 mg/dL (9-20); CALCIUM 7.7 mg/dl (8.6-10.4); GFR NON-AFRICAN AMERICAN > 60
--- NOTE | 2018-04-27 11:19 | CP.PCM.PN ---
Subjective - Date & Time of Evaluation Date of Evaluation: 04/27/18 Time of Evaluation: 11:16 - Subjective Subjective: No bleeding. Hgb Stable + H Pylori. Will initiate treatment as outpatient Stable for discharge Objective - Vital Signs/Intake and Output Vital Signs (last 24 hours): Temp Pulse Resp BP Pulse Ox 98.9 F 85 20 131/68 97 04/27/18 07:00 04/27/18 08:00 04/27/18 07:00 04/27/18 07:00 04/27/18 07:00 Intake and Output: 04/27/18 04/27/18 06:59 18:59 Intake Total 220 Output Total 400 Balance -180 - Labs Labs: 04/27/18 07:49 04/27/18 07:49 PT 23.5 SECONDS (9.7-12.2) H 04/24/18 10:56 INR 2.1 04/24/18 10:56 APTT 36 SECONDS (21-34) H 04/23/18 16:33 - Constitutional Appears: Well, No Acute Distress - Eye Exam Eye Exam: absent: Scleral icterus - Respiratory Exam Respiratory Exam: NORMAL BREATHING PATTERN - Cardiovascular Exam Cardiovascular Exam: REGULAR RHYTHM - GI/Abdominal Exam GI & Abdominal Exam: Soft. absent: Tenderness Assessment and Plan (1) Gastric ulcer due to Helicobacter pylori and nonsteroidal anti-inflammatory drug (NSAID) Assessment & Plan: Recommend treatment with triple therapy + PPI x 2 weeks and follow up in office Discussed with patient Provided with my contact information to f/u in office Status: Acute (2) Anemia Assessment & Plan: Gastric Ulcer No bleeding noted, however pt with new onset microcytic anemia. Rec: treat ulcer, as noted above. Although Colonoscopy was done in 2014 (Dr Ortiz) I suggest repeat colonoscopy. Can be done as outpatient. Pt requesting discharge today. He has to return to work. Status: Acute (3) Alcohol abuse Assessment & Plan: management per PCP Status: Chronic
[2018-04-27] MEDS ORDERED: Potassium Chloride 20 mEq ER Tab PO SCH (13:00)
--- NOTE | 2018-04-27 16:29 | CP.PCM.PN ---
Subjective - Date & Time of Evaluation Date of Evaluation: 04/27/18 Time of Evaluation: 16:26 - Subjective Subjective: CHIEF COMPLAINTS TODAY : current hemoglobin is 8.1 g/dL. Upper endoscopy shows no varices no active bleeding H pylori pos ROS. HEENT : N. Resp : No cough, wheezing ,pleuritic CP ,or hemoptysis Cardio : No anginal CP, PND, orthopnea, palpitation GI : No abd.pain, n/v ,diarrhea or GI bleeding . INSTITUTION LIBRARIAN : No headache, vertigo, focal deficit. Musculoskel : No joint swelling , Derm : No rash Psych : Normal affect. Ext : No swelling ,calf pain PE. Pt. is alert awake in no distress. V.S As noted in the chart Head ,ear nose,throat and eyes : Normal. Neck : Supple with normal carotids. Lungs: Clear air entry. Heart : S1 & S2 normal with S4. No murmur. Abd : Soft non tender with normal bowel sounds. Neuro : Moves all ext. with no localized deficit. Ext : No edema with intact pulses.Non tender calves Derm : No rashes or decubitus ulcer. LABS/RADIOLOGY: ASSESSMENT/PLAN : Follow hemoglobin hematocri. rx for H PYLORI Objective - Vital Signs/Intake and Output Vital Signs (last 24 hours): Temp Pulse Resp BP Pulse Ox 98.5 F 91 H 20 130/64 99 04/27/18 16:00 04/27/18 16:20 04/27/18 16:00 04/27/18 16:00 04/27/18 16:00 Intake and Output: 04/27/18 04/27/18 11:59 23:59 Intake Total 220 Output Total 400 Balance -180 - Medications Medications: Current Medications Pantoprazole Sodium (Protonix Ec Tab) 40 mg PO DAILY TARYN - Labs Labs: 04/27/18 07:49 04/27/18 07:49 PT 23.5 SECONDS (9.7-12.2) H 04/24/18 10:56 INR 2.1 04/24/18 10:56 APTT 36 SECONDS (21-34) H 04/23/18 16:33 Assessment and Plan (1) Alcoholic cirrhosis of liver with ascites Status: Acute (2) Symptomatic anemia Status: Acute (3) Upper GI bleed Status: Acute
[2018-04-28 06:21] LABS: HEMOGLOBIN 8.3 g/dL (12.0-18.0); MEAN CELL VOLUME 77.4 fL (80.0-94.0); MEAN CORPUSCULAR HEMOGLOBIN 23.8 pg (27.0-31.0); MEAN CORPUSCULAR HGB CONC 30.7 g/dL (33.0-37.0); MEAN PLATELET VOLUME 8.6 fL (7.2-11.7); RBC 3.5 Mil/uL (4.40-5.90); RED CELL DISTRIBUTION WIDTH 24.1 % (11.5-14.5); WHITE BLOOD COUNT 3.7 K/uL (4.8-10.8)
[2018-04-28 06:27] LABS: ALB/GLOB RATIO 0.6 (1.0-2.1); ALBUMIN 2.4 g/dL (3.5-5.0); ALT/SGPT 15 U/L (21-72); AST/SGOT 26 U/L (17-59); BLOOD UREA NITROGEN 7 mg/dL (9-20); CALCIUM 7.7 mg/dl (8.6-10.4); GFR NON-AFRICAN AMERICAN > 60
[2018-04-28 08:07] VITALS: BP 135/70; PULSE 89; TEMP 97.9; O2SAT 99
[2018-04-28] MEDS ORDERED: Pantoprazole 40 mg EC Tab PO SCH (10:00)
--- NOTE | 2018-04-28 14:02 | CP.PCM.DIS ---
Provider - Provider Date of Admission: 04/23/18 17:50 Attending physician: Mor Zhang MD Consults: 04/23/18 18:31 Gastroenterology Consult Routine Comment: alcoholic cirrhosis, anemia Consulting Provider: Sam Walton Consulting Physician: Sam Walton Reason for Consult: alcoholic cirrhosis, anemia Time Spent in preparation of Discharge (in minutes): 35 Diagnosis - Discharge Diagnosis (1) Alcoholic cirrhosis of liver with ascites Status: Acute (2) Symptomatic anemia Status: Acute (3) Upper GI bleed Status: Acute Priority: High Hospital Course - Lab Results Lab Results: Most Recent Lab Values WBC 3.7 K/uL (4.8-10.8) L 04/28/18 06:05 RBC 3.50 Mil/uL (4.40-5.90) L 04/28/18 06:05 Hgb 8.3 g/dL (12.0-18.0) L 04/28/18 06:05 Hct 27.1 % (35.0-51.0) L 04/28/18 06:05 MCV 77.4 fL (80.0-94.0) L 04/28/18 06:05 MCH 23.8 pg (27.0-31.0) L 04/28/18 06:05 MCHC 30.7 g/dL (33.0-37.0) L 04/28/18 06:05 RDW 24.1 % (11.5-14.5) H 04/28/18 06:05 Plt Count 62 K/uL (130-400) L 04/28/18 06:05 MPV 8.6 fL (7.2-11.7) 04/28/18 06:05 Neut % (Auto) 47.9 % (50.0-75.0) L 04/27/18 07:49 Lymph % (Auto) 38.2 % (20.0-40.0) 04/27/18 07:49 [place] % (Auto) 8.7 % (0.0-10.0) 04/27/18 07:49 Eos % (Auto) 4.5 % (0.0-4.0) H 04/27/18 07:49 Baso % (Auto) 0.7 % (0.0-2.0) 04/27/18 07:49 Neut # (Auto) 1.4 K/uL (1.8-7.0) L 04/27/18 07:49 Lymph # (Auto) 1.1 K/uL (1.0-4.3) 04/27/18 07:49 [place] # (Auto) 0.3 K/uL (0.0-0.8) 04/27/18 07:49 Eos # (Auto) 0.1 K/uL (0.0-0.7) 04/27/18 07:49 Baso # (Auto) 0.0 K/uL (0.0-0.2) 04/27/18 07:49 Differential Comment 04/24/18 10:56 PT 23.5 SECONDS (9.7-12.2) H 04/24/18 10:56 INR 2.1 04/24/18 10:56 APTT 36 SECONDS (21-34) H 04/23/18 16:33 Sodium 136 mmol/L (132-148) 04/28/18 06:05 Potassium 3.8 mmol/L (3.6-5.2) 04/28/18 06:05 Chloride 108 mmol/L (98-107) H 04/28/18 06:05 Carbon Dioxide 23 mmol/L (22-30) 04/28/18 06:05 Anion Gap 9 (10-20) L 04/28/18 06:05 BUN 7 mg/dL (9-20) L 04/28/18 06:05 Creatinine 0.5 mg/dL (0.8-1.5) L 04/28/18 06:05 Est GFR ( Amer) > 60 04/28/18 06:05 Est GFR (Non-Af Amer) > 60 04/28/18 06:05 Random Glucose 90 mg/dL (75-110) 04/28/18 06:05 Calcium 7.7 mg/dl (8.6-10.4) L 04/28/18 06:05 Total Bilirubin 2.2 mg/dL (0.2-1.3) H 04/28/18 06:05 Direct Bilirubin 0.6 mg/dL (0.0-0.4) H 04/27/18 07:49 AST 26 U/L (17-59) 04/28/18 06:05 ALT 15 U/L (21-72) L D 04/28/18 06:05 Alkaline Phosphatase 121 U/L (38-126) 04/28/18 06:05 Ammonia 44 umol/L (9-33) H 04/25/18 07:35 Total Protein 6.2 g/dL (6.3-8.3) L 04/28/18 06:05 Albumin 2.4 g/dL (3.5-5.0) L 04/28/18 06:05 Globulin 3.8 gm/dL (2.2-3.9) 04/28/18 06:05 Albumin/Globulin Ratio 0.6 (1.0-2.1) L 04/28/18 06:05 Stool Occult Blood Negative (NEGATIVE) 04/23/18 16:48 Stool H. pylori Ag Detected (Not Detected) H 04/24/18 21:52 H. pylori Source Stool 04/24/18 21:52 Blood Type O POSITIVE 04/23/18 16:33 Antibody Screen Negative 04/23/18 16:33 - Hospital Course Hospital Course: 52 year old male presents to the emergency department, after being referred by his PMD for chronic anemia. Patient is a recovering alcoholic, and states that his last drink was two months ago. Patient has many ED evaluations for alcohol- related issues. Patient's last ED visit was in November 2017. Patient presents today for intermittent dark, tarry stools and occasional bright-red blood at the rectum. Patient's recently had outpatient labs done with Dr. Cortes, who he hasn't seen in the last three years, and had a hemoglobin less than 5. Patient's last hemoglobin was 9.3. Patient has no other complaints at this time. GI service was consulted Upper endoscopy showed a gastric ulcer no active bleeding was seen there was no varices and no acute varices bleeding. Patient improved after transfusion of 3 units the hemoglobin before discharge was 8.3 patient had no any other symptoms. H. pylori was positive and patient was put on triple therapy Patient is discharged on triple therapy and his regular medications will be followed outpatient repeat another CBC. And follow up the biopsy of the gastric ulcer. Discharge Exam - Head Exam Head Exam: ATRAUMATIC, NORMAL INSPECTION, NORMOCEPHALIC Discharge Plan - Follow Up Plan Condition: GOOD Disposition: HOME/ ROUTINE Instructions: Anemia Caused by Low Iron, Adult (DC), Cirrhosis (DC), H. pylori Infection (DC), Alcohol Abuse and Alcoholism (DC) Referrals: Mor Zhang MD [Staff Provider] - Ray Renee MD [Staff Provider] -
--- NOTE | 2018-04-28 15:14 | CP.PCM.PN ---
Subjective - Date & Time of Evaluation Date of Evaluation: 04/28/18 Time of Evaluation: 15:13 - Subjective Subjective: f/u ulcer feels well. No evidence of active bleed Objective - Vital Signs/Intake and Output Vital Signs (last 24 hours): Temp Pulse Resp BP Pulse Ox 97.9 F 89 20 135/70 99 04/28/18 07:00 04/28/18 07:00 04/28/18 07:00 04/28/18 07:00 04/28/18 07:00 Intake and Output: 04/28/18 04/28/18 06:59 18:59 Intake Total 100 Output Total 1400 Balance -1300 - Medications Medications: Current Medications Amoxicillin (Amoxil 500 Mg Cap) 500 mg PO Q8 TARYN; Protocol Last Admin: 04/28/18 13:37 Dose: 500 mg Clarithromycin (Biaxin Filmtab) 500 mg PO Q12H TARYN; Protocol Last Admin: 04/28/18 06:00 Dose: 500 mg Pantoprazole Sodium (Protonix Ec Tab) 40 mg PO DAILY TARYN Last Admin: 04/28/18 09:29 Dose: 40 mg - Labs Labs: 04/28/18 06:05 04/28/18 06:05 PT 23.5 SECONDS (9.7-12.2) H 04/24/18 10:56 INR 2.1 04/24/18 10:56 APTT 36 SECONDS (21-34) H 04/23/18 16:33 - Constitutional Appears: Well - Head Exam Head Exam: NORMOCEPHALIC - Cardiovascular Exam Cardiovascular Exam: REGULAR RHYTHM - GI/Abdominal Exam GI & Abdominal Exam: Soft. absent: Tenderness Assessment and Plan (1) Gastric ulcer due to Helicobacter pylori and nonsteroidal anti-inflammatory drug (NSAID) Assessment & Plan: see note 04/27 Status: Acute (2) Anemia Assessment & Plan: see note 04/27 Status: Acute (3) Alcohol abuse Status: Chronic
== END 2018-04-28 17:24 | disposition home or self-care (01) | DRG 378 ==
LOC: C.ER 15:52 → C.9E 17:50 → C.6T 18:12
PROVIDERS: ADMIT Internal Medicine Cardiovascular Disease; ATTEND Internal Medicine Cardiovascular Disease
PROC: 0DB68ZX Excision of Stomach, Via Natural or Artificial Opening Endoscopic, Diagnostic (ICD-10-PCS; principal; 2018-04-25)
DX: K25.4 Chronic or unspecified gastric ulcer with hemorrhage (principal); D50.9 Iron deficiency anemia, unspecified; K76.6 Portal hypertension; K70.31 Alcoholic cirrhosis of liver with ascites; T39.395A Adverse effect of other nonsteroidal anti-inflammatory drugs [NSAID], initial encounter; B96.81 Helicobacter pylori [H. pylori] as the cause of diseases classified elsewhere; K29.70 Gastritis, unspecified, without bleeding; I10 Essential (primary) hypertension; J45.909 Unspecified asthma, uncomplicated; M17.10 Unilateral primary osteoarthritis, unspecified knee; F10.21 Alcohol dependence, in remission; F17.210 Nicotine dependence, cigarettes, uncomplicated; E78.00 Pure hypercholesterolemia, unspecified

== ENCOUNTER 2018-06-13 19:57 | Emergency (ER) | payer OTHER ==
[2018-06-13 19:58] VITALS: BMI 35.5
--- NOTE | 2018-06-13 20:43 | C.PDOC ---
History Of Present Illness 52 year old male is brought to the ED by EMS for alcohol intoxication. Patient admits to drinking alcohol today. Patient denies SI/HI, hallucinations, CP, SOB, nausea, vomit, abdominal pain, injury, fall, trauma. Time Seen by Provider: 06/13/18 20:42 Chief Complaint (Nursing): Substance Abuse History Per: Patient, EMS History/Exam Limitations: intoxication Onset/Duration Of Symptoms: Hrs Current Symptoms Are (Timing): Still Present Suicide/Self Injury Attempted (Context): None Modifying Factor(s): Alcohol Associated Symptoms: denies: Depression, Suicidal Thoughts, Suicidal Plan Recent travel outside of the [place]: No Additional History Per: Patient, EMS Past Medical History Reviewed: Historical Data, Nursing Documentation, Vital Signs Vital Signs: Last Vital Signs Temp 98.2 F 06/13/18 20:07 Pulse 78 06/13/18 20:07 Resp 20 06/13/18 20:07 BP 134/72 06/13/18 20:07 Pulse Ox 98 06/13/18 20:07 - Medical History PMH: Asthma, HTN, Hypercholesterolemia Denies: Chronic Kidney Disease Surgical History: Endoscopy - [email or web address] Procedures ALCOHOL DETOXIFICATION (01/03/13) COLONOSCOPY (01/03/13) EXCISION OF DESCENDING COLON, ENDO, DIAGN (02/22/15) EXCISION OF STOMACH, ENDO, DIAGN (04/23/18) OTHER ENDOSCOPY OF SM INTEST (01/03/13) Family History: States: Unknown Family Hx - Social History Hx Tobacco Use: Yes (former smoker) Hx Alcohol Use: Yes (beer) Hx Substance Use: No - Immunization History Hx Tetanus Toxoid Vaccination: No Hx Influenza Vaccination: No Hx Pneumococcal Vaccination: No Review Of Systems Constitutional: Negative for: Fever, Chills Eyes: Negative for: Vision Change Cardiovascular: Negative for: Chest Pain, Palpitations Respiratory: Negative for: Shortness of Breath Gastrointestinal: Negative for: Nausea, Vomiting, Abdominal Pain Skin: Negative for: Rash Psych: Negative for: Depression, Suicidal ideation Physical Exam - Physical Exam Appears: Non-toxic, No Acute Distress Skin: Warm, Dry Head: Normacephalic Eye(s): bilateral: Normal Inspection Neck: Supple Chest: Symmetrical Cardiovascular: Rhythm Regular Respiratory: No Rales, No Rhonchi, No Wheezing Gastrointestinal/Abdominal: Soft, No Tenderness, No Guarding, No Rebound Extremity: Bilateral: Atraumatic, Normal Color And Temperature, Normal ROM Neurological/Psych: Oriented x3, Normal Speech, Normal Cognition Gait: Steady ED Course And Treatment O2 Sat by Pulse Oximetry: 98 (ON RA) Pulse Ox Interpretation: Normal Progress Note: 10:14 PM Pt ambulatory without difficulty. Clinically sober Disposition Counseled Patient/Family Regarding: Studies Performed, Diagnosis, Need For Fo llowup - Disposition Referrals: [facility] [Outside] Disposition: HOME/ ROUTINE Disposition Time: 20:43 Condition: FAIR Instructions: Alcohol Abuse and Alcoholism (DC) Forms: [employer] (Estonian) Print Language: ROMANIAN - Clinical Impression Clinical Impression: Alcohol intoxication - Scribe Statement The provider has reviewed the documentation as recorded by the Scribe Tono Avila All medical record entries made by the Scribe were at my direction and personally dictated by me. I have reviewed the chart and agree that the record accurately reflects my personal performance of the history, physical exam, medical decision making, and the department course for this patient. I have also personally directed, reviewed, and agree with the discharge instructions and disposition.
[2018-06-13 22:28] VITALS: BP 129/70; PULSE 75; RESP 16; TEMP 98.1; O2SAT 99
== END 2018-06-13 22:27 | disposition home or self-care (01) ==
LOC: C.ER 19:57
DX: F10.129 Alcohol abuse with intoxication, unspecified (principal); Y90.9 Presence of alcohol in blood, level not specified

== ENCOUNTER 2018-06-21 15:18 | Emergency (ER) | payer OTHER ==
[2018-06-21 15:19] VITALS: BMI 35.5
--- NOTE | 2018-06-21 17:52 | C.PDOC ---
History Of Present Illness 52 year old male presents to the emergency department via BLS for public intoxication. Patient reports drinking prior to arrival. He complains of pain in his legs, but offers no other complaints at this time. Time Seen by Provider: 06/21/18 15:25 Chief Complaint (Nursing): Substance Abuse History Per: Patient History/Exam Limitations: no limitations Onset/Duration Of Symptoms: Hrs Current Symptoms Are (Timing): Still Present Suicide/Self Injury Attempted (Context): None Modifying Factor(s): Alcohol Associated Symptoms: denies: Suicidal Thoughts, Suicidal Plan Past Medical History Reviewed: Historical Data, Nursing Documentation, Vital Signs Vital Signs: Last Vital Signs Temp 97.6 F 06/21/18 15:27 Pulse 96 H 06/21/18 15:27 Resp 18 06/21/18 15:27 BP 154/82 H 06/21/18 15:27 Pulse Ox 98 06/21/18 15:27 - Medical History PMH: Asthma, HTN, Hypercholesterolemia Denies: Chronic Kidney Disease Surgical History: Endoscopy - [facility] Procedures ALCOHOL DETOXIFICATION (01/03/13) COLONOSCOPY (01/03/13) EXCISION OF DESCENDING COLON, ENDO, DIAGN (02/22/15) EXCISION OF STOMACH, ENDO, DIAGN (04/23/18) OTHER ENDOSCOPY OF SM INTEST (01/03/13) Family History: States: No Known Family Hx - Social History Hx Tobacco Use: Yes (former smoker) Hx Alcohol Use: Yes (beer) Hx Substance Use: No - Immunization History Hx Tetanus Toxoid Vaccination: No Hx Influenza Vaccination: No Hx Pneumococcal Vaccination: No Review Of Systems Except As Marked, All Systems Reviewed And Found Negative. Constitutional: Negative for: Fever, Chills Gastrointestinal: Negative for: Nausea, Vomiting, Diarrhea Musculoskeletal: Positive for: Leg Pain Neurological: Positive for: Other (intoxication) Physical Exam - Physical Exam Appears: Non-toxic, No Acute Distress Skin: Normal Color, Warm, Dry Head: Atraumatic, Normacephalic Eye(s): bilateral: Normal Inspection, PERRL, EOMI Nose: Normal Oral Mucosa: Moist Neck: Normal, Supple Chest: Symmetrical, No Tenderness Cardiovascular: Rhythm Regular, No Murmur Respiratory: Normal Breath Sounds, No Rales, No Rhonchi, No Wheezing Gastrointestinal/Abdominal: Soft, No Tenderness Extremity: Normal ROM, No Tenderness, No Pedal Edema, No Swelling Pulses: Left Dorsalis Pedis: Normal, Right Dorsalis Pedis: Normal Neurological/Psych: Oriented x3, Normal Speech, Normal Cognition ED Course And Treatment O2 Sat by Pulse Oximetry: 98 (RA) Pulse Ox Interpretation: Normal Medical Decision Making Medical Decision Making: Plan: Glucose POC Disposition Counseled Patient/Family Regarding: Diagnosis, Need For Followup - Disposition Disposition: HOME/ ROUTINE Disposition Time: 22:25 Condition: STABLE Forms: [facility] (Gambian), General Discharge Instructions - POA Present On Arrival: None - Clinical Impression Clinical Impression: Alcohol intoxication - Scribe Statement The provider has reviewed the documentation as recorded by the Scribe (Mode Perry) Provider Attestation: All medical record entries made by the Scribe were at my direction and personal ly dictated by me. I have reviewed the chart and agree that the record accurately reflects my personal performance of the history, physical exam, medical decision making, and the department course for this patient. I have also personally directed, reviewed, and agree with the discharge instructions and disposition.
[2018-06-21 22:46] VITALS: BP 134/77; PULSE 95; RESP 18; TEMP 98.8; O2SAT 95
== END 2018-06-21 22:52 | disposition home or self-care (01) ==
LOC: C.ER 15:18
DX: F10.129 Alcohol abuse with intoxication, unspecified (principal)

== ENCOUNTER 2018-07-12 14:17 | Emergency (ER) | payer OTHER ==
[2018-07-12 14:17] VITALS: BMI 35.5
[2018-07-12 14:36] VITALS: TEMP 98.2
--- NOTE | 2018-07-12 14:50 | C.PDOC ---
History Of Present Illness 53 y/o male pt presents to the ER by EMS for public intoxication. Pt has no other associated sx or complaints at this time. Time Seen by Provider: 07/12/18 14:18 Chief Complaint (Nursing): Substance Abuse History Per: EMS History/Exam Limitations: no limitations Onset/Duration Of Symptoms: Hrs Current Symptoms Are (Timing): Still Present Modifying Factor(s): Alcohol Past Medical History Reviewed: Historical Data, Nursing Documentation, Vital Signs Vital Signs: Last Vital Signs Temp 98.2 F 07/12/18 14:26 Pulse 90 07/12/18 14:26 Resp 20 07/12/18 14:26 BP 135/60 07/12/18 14:26 Pulse Ox 95 07/12/18 14:26 - Medical History PMH: Asthma, HTN, Hypercholesterolemia Surgical History: Endoscopy - [facility] Procedures ALCOHOL DETOXIFICATION (01/03/13) COLONOSCOPY (01/03/13) EXCISION OF DESCENDING COLON, ENDO, DIAGN (02/22/15) EXCISION OF STOMACH, ENDO, DIAGN (04/23/18) OTHER ENDOSCOPY OF SM INTEST (01/03/13) Family History: States: No Known Family Hx - Social History Hx Tobacco Use: Yes (former smoker) Hx Alcohol Use: Yes (beer) Hx Substance Use: No - Immunization History Hx Tetanus Toxoid Vaccination: No Hx Influenza Vaccination: No Hx Pneumococcal Vaccination: No Review Of Systems Except As Marked, All Systems Reviewed And Found Negative. Constitutional: Positive for: Other (drunk ) Gastrointestinal: Negative for: Abdominal Pain Musculoskeletal: Negative for: Back Pain Physical Exam - Physical Exam Appears: Non-toxic, No Acute Distress, Other (alcohol on breath ) Skin: Warm, Dry Head: Atraumatic, Normacephalic Oral Mucosa: Moist Throat: Normal Chest: Symmetrical Cardiovascular: Rhythm Regular Respiratory: Normal Breath Sounds, No Rales, No Rhonchi, No Wheezing Gastrointestinal/Abdominal: Soft, No Tenderness Extremity: Normal ROM (x4) Neurological/Psych: Oriented x3, Normal Speech, Normal Cognition, Normal Motor, Normal Sensation ED Course And Treatment O2 Sat by Pulse Oximetry: 95 (RA) Pulse Ox Interpretation: Normal Medical Decision Making Medical Decision Making: pending sobriety. plans: -- finger stick Pending sobriety Reassess: At this time, the patient is ambulatory with steady gait, and is clinically sober. Observation discharge care of the patient included a discussion of outpatient management including available detox programs, instructions for continuing care and preparation of the discharge records. Patient is stable for discharge and outpatient therapy and follow-up. pt observed in er 5+ hours in nad. slept through entire ed course. no medical complaint. steady gait stable for dc. Disposition - Disposition Referrals: [facility] [Outside] [facility] [Outside] [facility] [Outside] Disposition: HOME/ ROUTINE Disposition Time: 07:30 Condition: STABLE Additional Instructions: return to er with worsening symptoms or concerns. Instructions: Alcohol Abuse and Alcoholism (DC) Forms: [employer] (Spanish) - Clinical Impression Clinical Impression: Alcohol abuse - Scribe Statement The provider has reviewed the documentation as recorded by the Jeremyibjessica Garcia Do Provider Attestation: All medical record entries made by the Scribe were at my direction and personally dictated by me. I have reviewed the chart and agree that the record accurately reflects my personal performance of the history, physical exam, medical decision making, and the department course for this patient. I have also personally directed, reviewed, and agree with the discharge instructions and disposition.
[2018-07-12 18:20] VITALS: BP 130/68; PULSE 88; RESP 18
[2018-07-12 19:29] VITALS: O2SAT 95
== END 2018-07-12 19:21 | disposition home or self-care (01) ==
LOC: C.ER 14:17
DX: F10.10 Alcohol abuse, uncomplicated (principal); E78.00 Pure hypercholesterolemia, unspecified; I10 Essential (primary) hypertension; Z87.891 Personal history of nicotine dependence

== ENCOUNTER 2018-08-16 19:05 | Emergency (ER) | payer OTHER ==
[2018-08-16 19:05] VITALS: BMI 35.5
--- NOTE | 2018-08-16 23:29 | C.PDOC ---
History Of Present Illness 53 y/o male is brought in by ambulance for public intoxication. Patient is well known to the ER for prior evaluations for same. Denies any injuries or other physical complaints. Time Seen by Provider: 08/16/18 19:08 Chief Complaint (Nursing): Substance Abuse History Per: EMS History/Exam Limitations: no limitations Onset/Duration Of Symptoms: Days Current Symptoms Are (Timing): Still Present Past Medical History Reviewed: Historical Data, Nursing Documentation, Vital Signs Vital Signs: Last Vital Signs Temp 98.0 F 08/16/18 19:20 Pulse 88 08/16/18 19:20 Resp 20 08/16/18 19:20 BP 143/78 08/16/18 19:20 Pulse Ox 95 08/16/18 19:20 - Medical History PMH: Asthma, HTN, Hypercholesterolemia Denies: Chronic Kidney Disease Surgical History: Endoscopy - [facility] Procedures ALCOHOL DETOXIFICATION (01/03/13) COLONOSCOPY (01/03/13) EXCISION OF DESCENDING COLON, ENDO, DIAGN (02/22/15) EXCISION OF STOMACH, ENDO, DIAGN (04/23/18) OTHER ENDOSCOPY OF SM INTEST (01/03/13) Family History: States: No Known Family Hx - Social History Hx Tobacco Use: Yes (former smoker) Hx Alcohol Use: Yes (beer) Hx Substance Use: No - Immunization History Hx Tetanus Toxoid Vaccination: No Hx Influenza Vaccination: No Hx Pneumococcal Vaccination: No Review Of Systems Except As Marked, All Systems Reviewed And Found Negative. Constitutional: Negative for: Fever Gastrointestinal: Negative for: Vomiting Psych: Positive for: Other (alcohol intoxication) Physical Exam - Physical Exam Appears: Non-toxic, No Acute Distress, Other (stuporous, older than stated age, obese) Skin: Warm, Dry Head: Atraumatic Eye(s): bilateral: Normal Inspection Oral Mucosa: Moist Neck: Supple Cardiovascular: Rhythm Regular, No Murmur Respiratory: Normal Breath Sounds, No Rales, No Rhonchi, No Wheezing Gastrointestinal/Abdominal: Soft, No Tenderness Extremity: Bilateral: Atraumatic Gait: Unsteady ED Course And Treatment O2 Sat by Pulse Oximetry: 95 (RA) Pulse Ox Interpretation: Normal Reevaluation Time: 00:55 Reassessment Condition: Improved Medical Decision Making Medical Decision Making: alcohol abuse Disposition Doctor Will See Patient In The: Office Counseled Patient/Family Regarding: Studies Performed, Diagnosis - Disposition Disposition: HOME/ ROUTINE Disposition Time: 00:55 Condition: GOOD Forms: [facility] (Haitian) - Clinical Impression Clinical Impression: Alcohol abuse - Scribe Statement The provider has reviewed the documentation as recorded by the Jeremyibjessica Nunez Provider Attestation: All medical record entries made by the Jeremyibe were at my direction and personally dictated by me. I have reviewed the chart and agree that the record accurately reflects my personal performance of the history, physical exam, medical decision making, and the department course for this patient. I have also personally directed, reviewed, and agree with the discharge instructions and disposition.
[2018-08-17 00:45] VITALS: BP 145/79; PULSE 71; RESP 16; TEMP 97.4
[2018-08-17 00:56] VITALS: O2SAT 95
== END 2018-08-17 01:06 | disposition home or self-care (01) ==
LOC: C.ER 19:05
DX: F10.10 Alcohol abuse, uncomplicated (principal); Y90.9 Presence of alcohol in blood, level not specified

== ENCOUNTER 2018-08-28 12:38 | Emergency (ER) | payer OTHER | END 2018-08-28 19:04 | disposition home or self-care (01) | LOC: C.ER 12:38 ==

== ENCOUNTER 2018-09-06 00:28 | Emergency (ER) | payer OTHER ==
[2018-09-06 00:28] VITALS: BMI 35.5
--- NOTE | 2018-09-06 02:23 | C.PDOC ---
History Of Present Illness 53 year old male presents to the ED is brought to the ED by EMS for public intoxication. Patient admits to drinking alcohol today. Patient denies SI/HI, hallucinations, other medical complaints. Time Seen by Provider: 09/06/18 01:32 Chief Complaint (Nursing): Substance Abuse History Per: Patient, EMS History/Exam Limitations: intoxication Onset/Duration Of Symptoms: Hrs Current Symptoms Are (Timing): Still Present Modifying Factor(s): Alcohol Associated Symptoms: denies: Depression, Suicidal Thoughts, Suicidal Plan Recent travel outside of the [place]: No Additional History Per: Patient, EMS Past Medical History Reviewed: Historical Data, Nursing Documentation, Vital Signs Vital Signs: Last Vital Signs Temp 97.9 F 09/06/18 00:51 Pulse 71 09/06/18 00:51 Resp 18 09/06/18 00:51 BP 144/70 09/06/18 00:51 Pulse Ox 95 09/06/18 00:51 Primary Care Provider: Non [facility] Provider, - Medical History PMH: Asthma, HTN, Hypercholesterolemia Denies: Chronic Kidney Disease Surgical History: Endoscopy - [facility] Procedures ALCOHOL DETOXIFICATION (01/03/13) COLONOSCOPY (01/03/13) EXCISION OF DESCENDING COLON, ENDO, DIAGN (02/22/15) EXCISION OF STOMACH, ENDO, DIAGN (04/23/18) OTHER ENDOSCOPY OF SM INTEST (01/03/13) Family History: States: Unknown Family Hx - Social History Hx Tobacco Use: Yes (former smoker) Hx Alcohol Use: Yes (beer) Hx Substance Use: No - Immunization History Hx Tetanus Toxoid Vaccination: No Hx Influenza Vaccination: No Hx Pneumococcal Vaccination: No Review Of Systems Constitutional: Negative for: Fever, Chills Cardiovascular: Negative for: Chest Pain Respiratory: Negative for: Shortness of Breath Gastrointestinal: Negative for: Nausea, Vomiting, Abdominal Pain Skin: Negative for: Rash Psych: Negative for: Depression, Suicidal ideation Physical Exam - Physical Exam Appears: Non-toxic, No Acute Distress Skin: Normal Color, Warm, Dry Head: Atraumatic, Normacephalic Eye(s): bilateral: Normal Inspection Neck: Normal ROM, Supple Chest: Symmetrical Cardiovascular: Rhythm Regular Respiratory: Normal Breath Sounds, No Rales, No Rhonchi, No Wheezing Extremity: Normal ROM, No Tenderness, No Swelling Neurological/Psych: Oriented x3, Normal Speech, Normal Cognition Gait: Steady ED Course And Treatment O2 Sat by Pulse Oximetry: 95 (ON RA) Pulse Ox Interpretation: Normal Disposition Counseled Patient/Family Regarding: Diagnosis, Need For Followup - Disposition Referrals: Non [facility] Provider, [Primary Care Provider] - Disposition: HOME/ ROUTINE Disposition Time: 17:30 Condition: IMPROVED Instructions: Alcohol Abuse and Alcoholism (DC) Forms: [facility] (Romans[facility]) - Clinical Impression Clinical Impression: Alcohol intoxication - Scribe Statement The provider has reviewed the documentation as recorded by the Scribe Tono Avila All medical record entries made by the Scribe were at my direction and personally dictated by me. I have reviewed the chart and agree that the record accurately reflects my personal performance of the history, physical exam, medical decision making, and the department course for this patient. I have also personally directed, reviewed, and agree with the discharge instructions and disposition.
[2018-09-06 04:13] VITALS: TEMP 97.8
[2018-09-06 05:41] VITALS: BP 128/76; PULSE 88; RESP 16
[2018-09-08 09:56] VITALS: O2SAT 95
== END 2018-09-06 05:41 | disposition home or self-care (01) ==
LOC: SUPCPDRO 00:28 → C.ER 00:28
DX: F10.129 Alcohol abuse with intoxication, unspecified (principal); E78.00 Pure hypercholesterolemia, unspecified; I10 Essential (primary) hypertension; Z87.891 Personal history of nicotine dependence